=== PATIENT | female | born 1945 | race Hispanic/Latino ===

== ENCOUNTER 2018-01-07 15:58 | Emergency (ER) | payer MEDICARE, BC ==
[2018-01-07 16:07] VITALS: TEMP 98.3
[2018-01-07 16:36] LABS: BASO # 0.06 K/mm3 (0.0-2.0); BASO % 0.5 % (0.0-3.0); EOS # 0.1 (0.0-0.7); EOS % 0.5 % (1.5-5.0); GRAN # 7.55 (1.4-6.5); GRAN % 68.9 % (50.0-68.0); HEMOGLOBIN 13.2 g/dL (12.0-16.0); LYMPH # 2.4 (1.2-3.4); LYMPH % 22.3 % (22.0-35.0); MEAN CELL VOLUME 95.9 fl (80.0-105.0); MEAN CORPUSCULAR HEMOGLOBIN 31.7 pg (25.0-35.0); MEAN PLATELET VOLUME 9.4 fl (7.0-11.0); MONO # 0.9 (0.1-0.6); MONO % 7.8 % (1.0-6.0); RBC 4.17 10^6/uL (3.5-6.1)
[2018-01-07 16:47] LABS: ALB/GLOB RATIO 1.4 (1.1-1.8); ALBUMIN 4.3 g/dL (3.0-4.8); ALT/SGPT 14 U/L (7-56); AST/SGOT 30 U/L (14-36); BLOOD UREA NITROGEN 19 mg/dL (7-21); CALCIUM 9.8 mg/dL (8.4-10.5); GFR NON-AFRICAN AMERICAN > 60
[2018-01-07 16:51] LABS: PH,URINE 6.5 (4.7-8.0); URINE BILIRUBIN NEGATIVE (NEGATIVE); URINE BLOOD TRACE-INTACT (NEGATIVE); URINE GLUCOSE (UA) NEGATIVE (NEGATIVE); URINE LEUKOCYTE ESTERASE SMALL Leu/uL (NEGATIVE); URINE PROTEIN NEGATIVE mg/dL (<30 mg/dL); URINE UROBILINOGEN 0.2 E.U./dL (<1 E.U./dL)
[2018-01-07 16:54] LABS: ACETAMINOPHEN < 10.0 ug/ml (10.0-20.0); SALICYLATE < 1 mg/dL (2.0-20.0); URINE APPEARANCE SL CLOUDY (CLEAR); URINE COLOR YELLOW (YELLOW)
[2018-01-07] MEDS ORDERED: Potassium Chloride 20 mEq ER Tab PO STA (17:03)
[2018-01-07 17:08] LABS: URINE BACTERIA FEW (NEG); URINE RBC 0 - 2 /hpf (0-2)
[2018-01-07 17:26] LABS: BARBITURATES, UR NEGATIVE (NEGATIVE); BENZODIAZEPINES, UR POSITIVE (NEGATIVE); OPIATES, UR NEGATIVE (NEGATIVE); PHENCYCLIDINE, UR NEGATIVE (NEGATIVE)
--- NOTE | 2018-01-07 17:31 | ED PDOC ---
Arrival/HPI - General Historian: Patient - History of Present Illness Narrative History of Present Illness (Text): 01/07/18 17:59 72yo female with history of anxiety present with complaint of hallucination x one week. The step daughter by the bedside states patient has been seeing her and other relatives. states she was seen at [facility] today and nothing was done. She denies SI/HI. states she has been on Xanax for years and took her last pill on Tuesday. Denies any somatic complaint. <Femi Thomas A - Last Filed: 01/07/18 19:16> <Tang Valencia - Last Filed: 01/09/18 11:15> - General Chief Complaint: Psychiatric Evaluation Time Seen by Provider: 01/07/18 16:10 Past Medical History - Provider Review Nursing Documentation Reviewed: Yes - Psychiatric Hx Substance Use: No - Suicidal Assessment Suicide Risk Precautions: None <WilliamHappiness A - Last Filed: 01/07/18 19:16> Family/Social History - Physician Review Nursing Documentation Reviewed: Yes Family/Social History: Unknown Family HX Smoking Status: Never Smoked Hx Alcohol Use: No Hx Substance Use: No <WilliamHappiness A - Last Filed: 01/07/18 19:16> Allergies/Home Meds <Femi Thomas A - Last Filed: 01/07/18 19:16> <Tang Valencia - Last Filed: 01/09/18 11:15> Allergies/Adverse Reactions: Allergies No Known Allergies Allergy (Verified 01/08/18 19:03) Home Medications: Home Meds Medication Instructions Recorded Confirmed Alprazolam [Xanax] 0.5 mg PO DAILY 01/08/18 01/08/18 RX: Escitalopram [Lexapro] 10 mg PO DAILY 01/08/18 01/08/18 Review of Systems - Physician Review All systems were reviewed & negative as marked: Yes - Review of Systems Constitutional: Normal Eyes: Normal ENT: Normal Respiratory: Normal Cardiovascular: Normal Gastrointestinal: Normal Genitourinary Female: Normal Musculoskeletal: Normal Skin: Normal Neurological: Normal Endocrine: Normal Hemo/Lymphatic: Normal Psychiatric: Other (Hallucination) <DiruHappiness A - Last Filed: 01/07/18 19:16> Physical Exam Vital Signs Reviewed: Yes Vital Signs Temp Pulse Resp BP Pulse Ox 01/07/18 16:02 98.3 F 95 H 17 100/57 L 95 Temperature: Afebrile Blood Pressure: Normal Pulse: Regular Respiratory Rate: Normal Appearance: Positive for: Well-Appearing, Non-Toxic, Comfortable Pain Distress: None Mental Status: Positive for: Alert and Oriented X 3 - Systems Exam Head: Present: Atraumatic, Normocephalic Pupils: Present: PERRL Extroacular Muscles: Present: EOMI Conjunctiva: Present: Normal Mouth: Present: Moist Mucous Membranes Neck: Present: Normal Range of Motion Respiratory/Chest: Present: Clear to Auscultation, Good Air Exchange. No: Respiratory Distress, Accessory Muscle Use Cardiovascular: Present: Regular Rate and Rhythm, Normal S1, S2. No: Murmurs Abdomen: No: Tenderness, Distention, Peritoneal Signs Back: Present: Normal Inspection Upper Extremity: Present: Normal Inspection. No: Cyanosis, Edema Lower Extremity: Present: Normal Inspection. No: Edema Neurological: Present: GCS=15, CN II-XII Intact, Speech Normal Skin: Present: Warm, Dry, Normal Color. No: Rashes Psychiatric: Present: Alert, Oriented x 3, Normal Insight, Normal Concentration <Diru,Happiness A - Last Filed: 01/07/18 19:16> Vital Signs Temp Pulse Resp BP Pulse Ox 01/07/18 19:28 97 01/07/18 19:26 85 16 106/75 97 01/07/18 17:52 89 18 101/65 97 01/07/18 16:02 98.3 F 95 H 17 100/57 L 95 <Tang Valencia - Last Filed: 01/09/18 11:15> Medical Decision Making ED Course and Treatment: 01/07/18 19:16 Pt was seen in ED for stated history. She was neurologically intact. Lab was reviewed and her potassium was repleted. Small leukocyte was noted in UA, but pt was asymptomatic at this time. Will not treat. Head CT Negative EKG NSR @82bpm She was medically cleared for psychiatric evaluation. she was seen in ED by LEIDY Flores. He DC with the psychiatrist and pt was DC home to /u with [facility]. - Lab Interpretations Lab Results: 01/07/18 16:15 01/07/18 16:15 Lab Results 01/07/18 16:15: Urine Opiates Screen Negative, Urine Methadone Screen Negative, Ur Barbiturates Screen Negative, Ur Phencyclidine Scrn Negative, Ur Amphetamines Screen Negative, U Benzodiazepines Scrn Positive H, U Oth Cocaine Metabols Negative, U Cannabinoids Screen Negative 01/07/18 16:15: Alcohol, Quantitative < 10 01/07/18 16:15: Salicylates < 1 L, Acetaminophen < 10.0 L 01/07/18 16:15: Sodium 137, Potassium 3.4 L, Chloride 99, Carbon Dioxide 28, Anion Gap 13, BUN 19, Creatinine 0.9, Est GFR ( Amer) > 60, Est GFR (Non- Af Amer) > 60, Random Glucose 102, Calcium 9.8, Magnesium 1.9, Total Bilirubin 0.5, AST 30, ALT 14, Alkaline Phosphatase 55, Total Protein 7.3, Albumin 4.3, Globulin 3.0, Albumin/Globulin Ratio 1.4 01/07/18 16:15: Urine Color Yellow, Urine Appearance Sl cloudy, Urine pH 6.5, Ur Specific [place]eton 1.010, Urine Protein Negative, Urine Glucose (UA) Negative, Urine Ketones Negative, Urine Blood Trace-intact H, Urine Nitrate Negative, Urine Bilirubin Negative, Urine Urobilinogen 0.2, Ur Leukocyte Esterase Small H, Urine RBC 0 - 2, Urine WBC 2 - 5, Ur Epithelial Cells 3 - 4, Urine Bacteria Few 01/07/18 16:15: WBC 11.0, RBC 4.17, Hgb 13.2, Hct 40.0, MCV 95.9, MCH 31.7, MCHC 33.0, RDW 13.0, Plt Count 302, MPV 9.4, Gran % 68.9 H, Lymph % (Auto) 22.3, Mathews % (Auto) 7.8 H, Eos % (Auto) 0.5 L, Baso % (Auto) 0.5, Gran # 7.55 H, Lymph # (Auto) 2.4, Mathews # (Auto) 0.9 H, Eos # (Auto) 0.1, Baso # (Auto) 0.06 - RAD Interpretation Radiology Orders: 01/07/18 16:33 HEAD W/O CONTRAST [CT] Stat - Medication Orders Current Medication Orders: Discontinued Medications Potassium Chloride (K-Dur 20 Meq Er Tab) 20 meq PO STAT STA Stop: 01/07/18 17:04 <Diru,Happiness A - Last Filed: 01/07/18 19:16> - Lab Interpretations Microbiology Results: Microbiology Results 01/07/18 16:15 Urine,Clean Catch Urine Culture - Final No Growth (<1,000 CFU/ML) Lab Results: 01/07/18 16:15 01/07/18 16:15 Lab Results 01/07/18 16:15: Urine Opiates Screen Negative, Urine Methadone Screen Negative, Ur Barbiturates Screen Negative, Ur Phencyclidine Scrn Negative, Ur Amphetamines Screen Negative, U Benzodiazepines Scrn Positive H, U Oth Cocaine Metabols Negative, U Cannabinoids Screen Negative 01/07/18 16:15: Alcohol, Quantitative < 10 01/07/18 16:15: Salicylates < 1 L, Acetaminophen < 10.0 L 01/07/18 16:15: Sodium 137, Potassium 3.4 L, Chloride 99, Carbon Dioxide 28, Anion Gap 13, BUN 19, Creatinine 0.9, Est GFR ( Amer) > 60, Est GFR (Non- Af Amer) > 60, Random Glucose 102, Calcium 9.8, Magnesium 1.9, Total Bilirubin 0.5, AST 30, ALT 14, Alkaline Phosphatase 55, Total Protein 7.3, Albumin 4.3, Globulin 3.0, Albumin/Globulin Ratio 1.4 01/07/18 16:15: Urine Color Yellow, Urine Appearance Sl cloudy, Urine pH 6.5, Ur Specific Teton 1.010, Urine Protein Negative, Urine Glucose (UA) Negative, Urine Ketones Negative, Urine Blood Trace-intact H, Urine Nitrate Negative, Urine Bilirubin Negative, Urine Urobilinogen 0.2, Ur Leukocyte Esterase Small H, Urine RBC 0 - 2, Urine WBC 2 - 5, Ur Epithelial Cells 3 - 4, Urine Bacteria Few 01/07/18 16:15: WBC 11.0, RBC 4.17, Hgb 13.2, Hct 40.0, MCV 95.9, MCH 31.7, MCHC 33.0, RDW 13.0, Plt Count 302, MPV 9.4, Gran % 68.9 H, Lymph % (Auto) 22.3, Mathews % (Auto) 7.8 H, Eos % (Auto) 0.5 L, Baso % (Auto) 0.5, Gran # 7.55 H, Lymph # (Auto) 2.4, Mathews # (Auto) 0.9 H, Eos # (Auto) 0.1, Baso # (Auto) 0.06 - RAD Interpretation Radiology Orders: 01/07/18 16:33 HEAD W/O CONTRAST [CT] Stat - Medication Orders Current Medication Orders: Discontinued Medications Potassium Chloride (K-Dur 20 Meq Er Tab) 20 meq PO STAT STA Stop: 01/07/18 17:04 Last Admin: 01/07/18 18:06 Dose: 20 meq <Tang Valencia - Last Filed: 01/09/18 11:15> - PA / PETROGRAPHY TEACHER / Resident Statement /DO has reviewed & agrees with the documentation as recorded. <Tang Valencia - Last Filed: 01/09/18 11:15> Disposition/Present on Arrival - Present on Arrival Any Indicators Present on Arrival: No History of DVT/PE: No History of Uncontrolled Diabetes: No Urinary Catheter: No History of Decub. Ulcer: No History Surgical Site Infection Following: None - Disposition Have Diagnosis and Disposition been Completed?: Yes Disposition Time: 19:20 Patient Plan: Discharge <Femi Thomas - Last Filed: 01/07/18 19:16> <Tang Valencia - Last Filed: 01/09/18 11:15> - Disposition Diagnosis: Anxiety Disposition: HOME/ ROUTINE Condition: STABLE Discharge Instructions (ExitCare): Anxiety, Adult (DC) Additional Instructions: Follow up with your doctor/[facility] Return to ED for any new symptoms Referrals: Vaughn Frias MD [Primary Care Provider] - Follow up with primary Forms: AG[employer]P (Kyrgyz)
[2018-01-07 17:53] VITALS: O2SAT 97
[2018-01-07 19:28] VITALS: BP 106/75; PULSE 85; RESP 16
--- NOTE | 2018-01-08 09:15 | CARD ---
APPROVED REPORT Date of service: 01/07/2018 EKG Measurement Heart [id number] [id number] <Conclusion> Normal sinus rhythm Normal ECG
--- NOTE | 2018-01-08 09:39 | CT ---
Date of service: 01/07/2018 PROCEDURE: CT HEAD WITHOUT CONTRAST. HISTORY: AMS COMPARISON: None available. TECHNIQUE: Axial computed tomography images were obtained through the head/brain without intravenous contrast. Supplemental Coronal and Sagittal projectections created and reviewed. Radiation dose: Total exam DLP = 808.86 mGy-cm. This CT exam was performed using one or more of the following dose reduction techniques: Automated exposure control, adjustment of the mA and/or kV according to patient size, and/or use of iterative reconstruction technique. FINDINGS: HEMORRHAGE: No intracranial hemorrhage. BRAIN: No mass effect or edema. Cortical atrophy and chronic microvascular ischemic change. VENTRICLES: Unremarkable. No hydrocephalus. CALVARIUM: Unremarkable. PARANASAL SINUSES: Unremarkable as visualized. No significant inflammatory changes. MASTOID AIR CELLS: Unremarkable as visualized. No inflammatory changes. OTHER FINDINGS: None. IMPRESSION: No acute intracranial abnormalities. No significant findings to account for the clinical presentation. Concordant results (preliminary interpretation) provided by [employer] [facility]. Procedure Completed: 17:32. Preliminary Report: Dictated and Authenticated: 17:45. Final Interpretation: 09:36. January 08, 2018.
== END 2018-01-07 19:28 | disposition home or self-care (01) ==
LOC: ED 15:58
DX: F41.9 Anxiety disorder, unspecified (principal)
CPT/HCPCS: 70450; 80053; 81001; 83735; 85025; 87086; 93005; 99285; G0480

== ENCOUNTER 2018-01-08 18:59 | Inpatient (IN) | payer MEDICARE, BC ==
--- NOTE | 2018-01-08 19:23 | ED PDOC ---
Arrival/HPI - General Chief Complaint: Psychiatric Evaluation Time Seen by Provider: 01/08/18 19:01 Historian: Patient - History of Present Illness Narrative History of Present Illness (Text): 01/08/18 19:21 72yo female with pmhx of anxiety present with complaint of hallucinations and anxiety. Patient was seen here for same complaint yesterday. She was discharged home after a psychiatric evaluation. The step daughter by the bedside states patient came back to ED because she is having a longer episode of hallucination. Patient reports anxiety. Denies SI/HI, any somatic complaint. Past Medical History - Provider Review Nursing Documentation Reviewed: Yes - Cardiac Hx Cardiac Disorders: No - Pulmonary Hx Respiratory Disorders: No - Neurological Hx Neurological Disorder: No - HEENT Hx HEENT Disorder: No - Renal Hx Renal Disorder: No - Endocrine/Metabolic Hx Endocrine Disorders: No - Hematological/Oncological Hx Blood Disorders: No - Integumentary Hx Dermatological Disorder: No - Musculoskeletal/Rheumatological Hx Musculoskeletal Disorders: No - Gastrointestinal Hx Gastrointestinal Disorders: No - Genitourinary/Gynecological Hx Genitourinary Disorders: No - Psychiatric Hx Psychophysiologic Disorder: Yes Hx Anxiety: Yes Hx Substance Use: No Family/Social History - Physician Review Nursing Documentation Reviewed: Yes Family/Social History: Unknown Family HX Smoking Status: Never Smoked Hx Alcohol Use: No Hx Substance Use: No Allergies/Home Meds Allergies/Adverse Reactions: Allergies No Known Allergies Allergy (Verified 01/08/18 19:03) Home Medications: Home Meds Medication Instructions Recorded Confirmed Alprazolam [Xanax] 0.5 mg PO DAILY 01/08/18 01/08/18 Escitalopram [Lexapro] 10 mg PO DAILY 01/08/18 01/08/18 Review of Systems - Physician Review All systems were reviewed & negative as marked: Yes - Review of Systems Constitutional: Normal Eyes: Normal ENT: Normal Respiratory: Normal Cardiovascular: Normal Gastrointestinal: Normal Genitourinary Female: Normal Musculoskeletal: Normal Skin: Normal Neurological: Normal Endocrine: Normal Hemo/Lymphatic: Normal Psychiatric: Anxiety Physical Exam Vital Signs Reviewed: Yes Vital Signs Temp Pulse Resp BP Pulse Ox 01/08/18 19:09 98.1 F 81 17 129/78 97 Temperature: Afebrile Blood Pressure: Normal Pulse: Regular Respiratory Rate: Normal Appearance: Positive for: Well-Appearing, Non-Toxic, Comfortable Pain Distress: None Mental Status: Positive for: Alert and Oriented X 3 - Systems Exam Head: Present: Atraumatic, Normocephalic Pupils: Present: PERRL Extroacular Muscles: Present: EOMI Conjunctiva: Present: Normal Mouth: Present: Moist Mucous Membranes Neck: Present: Normal Range of Motion Respiratory/Chest: Present: Clear to Auscultation, Good Air Exchange. No: Respiratory Distress, Accessory Muscle Use Cardiovascular: Present: Regular Rate and Rhythm, Normal S1, S2. No: Murmurs Abdomen: No: Tenderness, Distention, Peritoneal Signs Back: Present: Normal Inspection Upper Extremity: Present: Normal Inspection. No: Cyanosis, Edema Lower Extremity: Present: Normal Inspection. No: Edema Neurological: Present: GCS=15, CN II-XII Intact, Speech Normal Skin: Present: Warm, Dry, Normal Color. No: Rashes Psychiatric: Present: Alert, Oriented x 3, Normal Insight, Normal Concentration Medical Decision Making ED Course and Treatment: 01/08/18 20:31 72yo female bib the family for worsening hallucinations. she was seen in ED yesterday and all labs and Head CT was nonspecific. Her potassium was repleted yesterday. UA was repeated today and moderate leuk was noted in her urine compare to small leuk from yesterday. She was started on Rocephin for UTI. Pt's PMD, Dr. Frias called and requested that pt be admitted to his service for AMS pending, brain MRI and psych consult tomorrow. EKG from yesterday was reviewed, it was NSR @ 82bpm Disposition/Present on Arrival - Present on Arrival Any Indicators Present on Arrival: No History of DVT/PE: No History of Uncontrolled Diabetes: No Urinary Catheter: No History of Decub. Ulcer: No History Surgical Site Infection Following: None - Disposition Have Diagnosis and Disposition been Completed?: Yes Diagnosis: UTI (urinary tract infection), Altered mental status Disposition: HOSPITALIZED Disposition Time: 20:05 Patient Plan: Admission Patient Problems: Current Active Problems Problem Status Onset Altered mental status Acute UTI (urinary tract infection) Acute Condition: STABLE Discharge Instructions (ExitCare): Urinary Tract Infections in Adults, Altered Mental Status (DC) Forms: [employer]up[employer] (Tamazight)
[2018-01-08 19:45] LABS: URINE BILIRUBIN NEGATIVE (NEGATIVE); URINE BLOOD MODERATE (NEGATIVE); URINE GLUCOSE (UA) NEGATIVE (NEGATIVE); URINE LEUKOCYTE ESTERASE MODERATE Leu/uL (NEGATIVE); URINE PROTEIN TRACE mg/dL (<30 mg/dL); URINE UROBILINOGEN 0.2 E.U./dL (<1 E.U./dL)
[2018-01-08 19:50] LABS: URINE APPEARANCE SL CLOUDY (CLEAR); URINE COLOR YELLOW (YELLOW)
[2018-01-08 19:54] LABS: BARBITURATES, UR NEGATIVE (NEGATIVE); BENZODIAZEPINES, UR POSITIVE (NEGATIVE); OPIATES, UR NEGATIVE (NEGATIVE); PHENCYCLIDINE, UR NEGATIVE (NEGATIVE)
[2018-01-08 19:55] LABS: URINE BACTERIA MOD (NEG); URINE WBC 15 - 20 /hpf (0-6)
[2018-01-08] MEDS ORDERED: cefTRIAXone 1 gm 1 GM/100 ML BAG IVPB STA (20:02)
[2018-01-08 20:40] LABS: BASO # 0.06 K/mm3 (0.0-2.0); BASO % 0.6 % (0.0-3.0); EOS # 0.1 (0.0-0.7); EOS % 0.9 % (1.5-5.0); GRAN # 6.59 (1.4-6.5); GRAN % 63.1 % (50.0-68.0); LYMPH # 2.7 (1.2-3.4); MEAN CELL VOLUME 95.6 fl (80.0-105.0); MEAN CORPUSCULAR HEMOGLOBIN 32.1 pg (25.0-35.0); MEAN CORPUSCULAR HGB CONC 33.6 g/dl (31.0-37.0); MONO % 9.4 % (1.0-6.0); RBC 4.05 10^6/uL (3.5-6.1); RED CELL DISTRIBUTION WIDTH 13.3 % (11.5-14.5); WHITE BLOOD COUNT 10.4 10^3/ul (4.5-11.0)
[2018-01-08 20:49] LABS: INR 1.02; PARTIAL THROMBOPLASTIN TIME 27.5 Seconds (25.1-36.5); PROTHROMBIN TIME 11.6 SECONDS (9.4-12.5)
[2018-01-08 21:01] LABS: ALB/GLOB RATIO 1.3 (1.1-1.8); ALBUMIN 4.5 g/dL (3.0-4.8); ALT/SGPT 19 U/L (7-56); AST/SGOT 36 U/L (14-36); BLOOD UREA NITROGEN 22 mg/dL (7-21); CALCIUM 9.6 mg/dL (8.4-10.5); GFR NON-AFRICAN AMERICAN > 60
[2018-01-08] MEDS ORDERED: Pneumococcal 23-Valent Vaccine IM ONE (23:50)
[2018-01-08] MEDS ORDERED: Influenza Vaccine 60 mcg/0.5 mL SYR (4YR UP) IM ONE (23:50)
[2018-01-09] MEDS: cefTRIAXone 1 gm 1 GM/100 ML BAG IVPB SCH (10:00)
--- NOTE | 2018-01-09 21:18 | HP ---
HISTORY OF PRESENT ILLNESS: A 72-year-old white female with a history of mild hypertension and anxiety disorder in the past. Over the past 3 to 4 days, the patient was noted by his step-daughter to have some visual and auditory hallucinations and some confusion. The patient is recently a from her of many many years who approximately 6 months ago. The patient had denied any fever, chills, head trauma following change in mental status, syncope, chest pain, shortness of breath, palpitations, headache, nausea, vomiting, change in vision, change in ambulation, etc. The patient's family had taken the patient to the [facility] approximately 48 hours ago. She was examined and released. I was contacted by the family, had directed the patient because she continued to have disorientation and confusion and visual hallucinations to the [facility]. The patient came to the [facility], again had a CT, laboratory workup etc. and had a Psych consultation and was able to be discharged home. The patient was discharged home, however, continued to have the same and worsening episodes of hallucinations, disorientation, and confusion. The patient was brought back to the Emergency Room at [facility] on the day of admission, which was 01/08/2018. The patient was found to have urinary tract infection and severe confusion, disorientation, and she was admitted because of continued change of mental status. The patient denies any fever or chills, dysuria, hematuria, burning. The patient does have poor appetite. She is a nonsmoker, nondrinker. She takes only Xanax and Lexapro at home. She is on a salt-free diet at home because of her hypertension. PAST SURGICAL HISTORY: None. FAMILY HISTORY: Noncontributory at this point. REVIEW OF SYSTEMS: As above. PHYSICAL EXAMINATION: GENERAL: A well-developed, thin white female, ambulating in the [facility], talking and conversing with the staff and somewhat confused. The patient is awake and alert. CHEST: Clear to auscultation and percussion. HEART: Regular sinus rhythm, carotids are without bruits. ABDOMEN: Soft. EXTREMITIES: Without cyanosis, clubbing, or edema. NEUROLOGIC: Essentially intact. The patient is oriented to person, to place, but not to time today. She does recall having episodes of talking to her parents and . She has also said that she had been taking less of her medication at home than previously prescribed. IMPRESSION: Acute confusional disorder, possible urinary tract infection, urosepsis, early onset of dementia, cerebrovascular accident. The patient did have a CT of the head. She is scheduled for an MRI of the brain. Continue other laboratory data to rule out encephalitis, vasculitis, B12 deficiency, infection, etc. PLAN: To do MRI and also to have a consultation with Dr. Davenport and continue laboratory work, continue IV antibiotics. Vaughn Frias MD
--- NOTE | 2018-01-10 02:51 | CON ---
DATE: 01/09/2018 HISTORY OF PRESENT ILLNESS: In short, the patient is a 72-year-old female with not known previous psychiatric history. The patient was presenting to the emergency room for hallucinations and anxiety. The patient was seen in the emergency room on 01/07/2018. The patient was discharged. At this time, the patient was admitted on the medical site for altered mental status, hallucinations and possible urinary tract infection. Psych consult was called for the same reason. The patient was seen and examined today. The patient presented completely disorganized. The patient is actively hallucinating while talking to this advertising writer, was referring someone in the room and had full conversation with the imaginary person. The patient was not able to keep the conversation. The patient was giving gibberish answers and obviously not doing well. This advertising writer ordered stat dose of Seroquel 12.5 mg as well as this advertising writer started on one-to-one observation because the patient is high risk of elopement. As per previous history, the patient does not have history of mental illness. The patient has never been admitted to the Psychiatric Inpatient Unit. This advertising writer reviewed vital signs. Vital signs seems to be stable. Temperature 97, pulse is 91, blood pressure 134/72, respirations 18, oxygen saturation is 98. Medications reviewed. The patient is on Xanax 0.25 mg p.o. daily, Rocephin, Lexapro 10 mg daily, Ativan 0.5 mg IV push three times a day as needed for anxiety. Seroquel was started. Geodon also was started. Labs reviewed. Most recent was from 01/08/2018. Leukocyte esterase moderate high. Toxicology was positive for benzodiazepines. MENTAL STATUS EXAMINATION: The patient appears to be absolutely disorganized, actively hallucinating during this advertising writer's interview, not able to sustain and keep her attention. The patient was giving gibberish answers. Insight and judgment seems to be impaired. Impulses are not predictable. IMPRESSION: Most likely, the patient is in delirium stage, but we need to obtain more collateral information from the family. The patient said the daughter, Hudson Garza left this advertising writer a message. We will call her back tomorrow, phone number is [phone]. PLAN: We will monitor the patient closely, one-to-one observation. Obtain collateral information from the family. Seroquel was started. Geodon was started. One-to-one was started. We will follow up and advise accordingly. Should you have any questions, give me a call back. Ethel Boyle MD
--- NOTE | 2018-01-10 10:01 | PN ---
DATE: 01/10/2018 SUBJECTIVE: A 72-year-old white female admitted to the hospital with change in mental status, confusion, disorientation, hallucinations and urinary tract infection. The patient has been treated for urinary tract infection. She was seen yesterday by Dr. Ethel Boyle. The patient was felt to have severe disorientation and visual and auditory hallucinations while being seen. The patient was started on Ativan IV push, Geodon IV push and Seroquel. The patient slept, she is on a one to one. She is much improved this morning. She is more awake, alert and oriented. She still has some disorientation. She is hallucinating and talking about her recently . PHYSICAL EXAMINATION: VITAL SIGNS: Stable. She is afebrile. LABORATORY DATA: White count is normal. Awaiting culture of the urine. PLAN: Continue Rocephin, continue psych meds and possible Psych admission. Vaughn Frias MD
[2018-01-10] MEDS: cefTRIAXone 1 gm 1 GM/100 ML BAG IVPB SCH (10:06)
[2018-01-10 17:17] VITALS: O2SAT 96
[2018-01-11 07:40] VITALS: BP 131/60; PULSE 82; RESP 20; TEMP 97.5
--- NOTE | 2018-01-11 09:22 | PN ---
DATE: 01/10/2018 FOLLOWUP NOTE SUBJECTIVE: Patient was followed up. The patient presented much better to compare with yesterday. The patient was more oriented. The patient knows why she is in the hospital. The patient was aware of the month, but not date and year. The patient was overall very pleasant. The patient still has difficulty to stay focused and concentrate. The patient obviously is in delirium stage. The patient gave permission to talk to her step daughter, Hudson at [phone]. As per collateral information from the step daughter, the patient was living independently. The patient was slowly decompensating since that time of her 's . The patient slowly started to feel more depressed. Also for the past week or so, the patient was disorganized as well as had hallucinations. The patient was seen in the emergency room on 01/07, and was discharged. Before that the patient was at [facility], but was cleared because the patient was not in danger to self or others. Right now, family wants the patient to be more stable. This group underwriter discussed future plans and possible power of district attorney in the future. The patient's step daughter also reported that the patient was not sleeping, was not able to stay focused and concentrate. The patient had visual hallucinations of her . The patient does not have history of mental illness, never been diagnosed with mental illness, never been depressed, never tried to kill herself in the past. PHYSICAL EXAMINATION: VITAL SIGNS: Stable. Temperature 97.6, pulse is 91, blood pressure 154/69, respirations 18, oxygen saturation is 98%. MEDICATIONS: Reviewed. The patient is on antibiotics which was switched to p.o. Lexapro, Ativan, Seroquel will be increased to 50 mg at the nighttime, and the patient is on Geodon last time it was yesterday at 3 p.m. LABORATORY DATA: Reviewed. MENTAL STATUS EXAMINATION: The patient presented much calmer. As per staff, the patient slept throughout the night. The patient described her mood as "I am fine, I am here in the hospital." Affect was reactive. At times, mood incongruent. Thought process disorganized, circumstantial, and tangential. The patient had difficulty to stay focused and concentrate. The patient obviously has psychotic symptoms such as visual hallucinations, but presented herself much better. Insight and judgment impaired as of now. Impulses are still unpredictable, but better controlled. IMPRESSION: Rule out delirium due to urinary tract infection. Rule out dementia with psychosis, but this is least likely. If it is dementia, it is early stage. PLAN: Seroquel will be increased. Collaterals were obtained. If the patient meets criteria, we will offer admission. Meanwhile, the patient needs to continue on one-to-one. Continue antibiotics. Should you have any questions, give me a call back. Thank you very much for letting me participate in care of your patient. Ethel Boyle MD
[2018-01-11] MEDS ORDERED: Cefpodoxime (Vantin) 200 mg Tab PO SCH (10:00)
--- NOTE | 2018-01-11 11:58 | PN ---
DATE: 01/11/2018 SUBJECTIVE: A 72-year-old white female who was admitted to hospital with urinary tract infection, change in mental status, confusion, disorientation, paranoia, visual and auditory hallucinations. Patient had improved yesterday, but by yesterday afternoon became worse. Still talking about visualizing her recently passed , seeing his body and feeling that she was told that she was yesterday. Patient was seen by Dr. Davenport for Psychiatry. Family was contacted about signing her into psych. She does have a brain MRI. We will follow that . We will continue IV antibiotics for urinary tract infection and continue the antipsychotic medications including Geodon and Seroquel. Vaughn Frias MD
--- NOTE | 2018-01-11 20:40 | PN ---
DATE: 01/11/2018 SUBJECTIVE: The patient was followed up today. The patient allowed this insurance writer to talk to her step daughter as well as her best friend. As per best friend as well as daughter, the patient does not present to be well, but showing some improvement. As per family, they expressed highest concerns about the patient's safety and disorganized thoughts and behavior. This insurance writer educated the patient as well as family about treatment plan. This insurance writer offered the patient admission to the psychiatric inpatient unit for further evaluation and stabilization. The patient and family agreed. The patient was educated about treatment plan, about medications, risks, benefits, and alternatives. The patient agreed with the plan. Discussed with the medical team. The patient is medically stable for transfer. The patient needs to be continued on p.o. antibiotics. From this insurance writer's side, we will initiate Neurology consultation to rule out early stage of dementia. PHYSICAL EXAMINATION: VITAL SIGNS: Stable. MEDICATIONS: Reviewed. The patient will be on Xanax, Vantin, Lexapro as well as Ativan as needed. Seroquel will be increased to 50 mg twice a day. The patient tolerated that medication as well. LABORATORY DATA: Reviewed. Most recent was from . MENTAL STATUS EXAMINATION: The patient's hygiene is improving. The patient has some improvement with concentration. The patient still presented to be disorganized, had difficulty to concentrate and stay focus. Thought process: Circumstantial, tangential. Thought content: The patient denied visual, auditory, or tactile hallucinations, but the patient had episodes of confusion majority of the time at the nighttime. The patient denied thoughts of harming herself or others. The patient wants to get better. Insight and judgment seem to be improving, but still limited. Impulses are well better controlled. IMPRESSION: Most likely, the patient had delirium stage or rule out early stage of dementia with psychosis, rule out mood disorder not otherwise specified. PLAN: Continue current management. Continue current medication. This insurance writer offered the patient admission. The patient agreed to be transferred to the psychiatric inpatient unit with instructions and supportive therapy. Discussed with the family and friends. Care of the patient took more than 45 minutes of this insurance writer's time. Thank you very much for letting me to participate in the care of your patient. Ethel Boyle MD [facility] # [id number]
--- NOTE | 2018-01-12 20:09 | DS ---
The patient was discharged and transferred to the psych unit under the care of Dr. Davenport. The patient was admitted with change in mental status, confusion, disorientation, hallucination. The patient was treated with multiple medications including Geodon, lorazepam, and Seroquel. She is markedly improved. Vital signs are stable. CT was negative. The patient will have an MRI as an outpatient. Laboratory data was unremarkable. The patient will be discharged to Psych to follow with Dr. Davenport. FINAL DISCHARGE DIAGNOSES: Acute delusional state, hallucinations, hypertension, sleep deprivation, anxiety disorder. Vaughn Frias MD
== END 2018-01-11 16:05 | DRG 690 ==
LOC: ED 18:59 → ERH 20:03 → 5RSO 22:49 → 5RNO 01-09 19:44 → OBSVTOIN 01-10 20:42
PROVIDERS: ADMIT Internal Medicine; ATTEND Internal Medicine
DX: N39.0 Urinary tract infection, site not specified (principal); I10 Essential (primary) hypertension; F41.9 Anxiety disorder, unspecified; Z72.820 Sleep deprivation

== ENCOUNTER 2018-01-11 16:09 | Inpatient (IN) | payer MEDICARE, BC ==
[2018-01-11 16:35] VITALS: BMI 32.3
--- NOTE | 2018-01-11 17:43 | PCM.BM ---
<Kandice Mccollum - Last Filed: 01/11/18 17:40> Treatment Plan Problems - Problems identified on initial assessmt INEFFECTIVE COPING Date Initiated: 01/11/18 Time Initiated: 17:45 Assessment reference: NA Status: Active Priority: 1 POOR SLEEP Date Initiated: 01/11/18 Time Initiated: 17:45 Assessment reference: NA Status: Active Priority: 2 SOCIAL ISOLATION Date Initiated: 01/11/18 Time Initiated: 17:45 Assessment reference: NA Status: Active Priority: 3 Treatment assets and liabiliti Patient Assests: cooperative, ADL independent, physically healthy, good support system, cognitively intact Patient Liabilities: live alone - Milieu Protocol Maintain good personal hygiene: daily Encourage regular showers, daily Remind patient to perform daily oral care, daily Assist patient to perform ADL's Maintain personal safety: every shift Educate patient to report safety concerns to staff, every shift Monitor environment for contraband/sharps Medication safety: Monitor for expected outcome, potential side effects: every shift, Assess barriers to learning: every shift, Assess readiness for medication education: every shift Discharge/Continuing Care - Education Needs Education Needs: Patient Medication, Patient Diagnosis/Disease Process, Patient Coping Skills, Patient Community resources, Patient Activities of Daily Living, Patient Nutrition, Patient Uses of Medical Equipment, Patient Health Practices/Safety, Patient Personal Hygiene/Grooming, Patient Aftercare Safety Plan - Discharge Discharge Criteria: Tolerates medication w/o severe side effects, Free of paranoid thoughts, Free of agitation, Normal sleep pattern, Ability to care for self, No longer exhibiting s/s of withdrawal, Reduction of target symptoms Discharge to:: Home <Ethel Boyle - Last Filed: 01/12/18 16:04> - Diagnosis (1) Psychosis Status: Acute Interventions: 01/12/18 16:04 Psychoeducation/psychotherapy Psychopharmacology/adjustment of medications as needed/ monitoring possible side effects Evaluate pt on daily basis Compliance with medications and follow up appointments Long acting medication if pt is noncompliant with pill form Suicide and homicide risk assessment and prevention, coping strategies, safety plan Relapse prevention Reduction of symptoms Improve functional status Possible assertive community treatment Cognitive behavioral therapy Family involvement Possible social skill training as outpatient (2) UTI (urinary tract infection) Status: Acute Interventions: 01/12/18 16:04 Pt will be seen by medical team as needed Medications will be confirmed and resumed Additional consultation by specialists as needed Lab work as needed (CBC, CMP, TSH, free T4, UA, ) CXR as needed EKG Physical therapy evaluation as needed <Nicole Suarez - Last Filed: 01/13/18 16:33>
[2018-01-11] MEDS ORDERED: Cefpodoxime (Vantin) 200 mg Tab PO SCH (18:00)
[2018-01-11] MEDS: Cefpodoxime (Vantin) 200 mg Tab PO SCH (18:10)
[2018-01-12] MEDS: Cefpodoxime (Vantin) 200 mg Tab PO SCH ×2 (05:00→17:11)
[2018-01-12] MEDS ORDERED: Alum-Mag Hydrox-Simethicone Susp (30 mL) PO PRN (05:19)
[2018-01-12] MEDS ORDERED: Magnesium Hydroxide Susp 30 ml UD PO PRN (05:19)
[2018-01-12 08:07] LABS: HDL CHOLESTEROL 55 mg/dL (29-60)
[2018-01-12 08:18] LABS: LDL CHOLESTEROL 124 mg/dL (0-129)
[2018-01-12 08:23] LABS: FREE T4 1.27 ng/dL (0.78-2.19)
--- NOTE | 2018-01-12 10:57 | PN ---
DATE: 01/12/2018 SUBJECTIVE: A 72-year-old white female seen in the Psychiatry unit under the care of Dr. Davenport. The patient is well known to me for many years with hypertension and anxiety disorder. The patient had a recent change in mental status with confusion, disorientation and hallucinations, auditory and visual. The patient is grieving the loss of her . She also has had sleep deprivation and possible use or not use of her Xanax as prescribed. The patient is still having conversations about her passed . She still believes her is or should be in the room. I had a long discussion with the patient about living in the present and recognize that she is a and that she has been living alone for the last six months. The patient seems calm, but somewhat disoriented. I had a long discussion with Dr. Davenport about the patient's state. The patient has a good prognosis with proper education and some therapy, she should improve. PHYSICAL EXAMINATION VITAL SIGNS: Stable. CHEST: Clear to auscultation and percussion. PLAN: Plan is to continue medication therapy and also, a neurological consultation to rule out early onset dementia. Vaughn Frias MD
--- NOTE | 2018-01-12 16:04 | PCM.PSYCH ---
Initial Psychiatric Evaluation - Initial Psychiatric Evaluation Type of Admission: Voluntary Legal Status: Capacity (patient has capacity to sign consent for treatment) Chief Complaint (in patient's own words): "this is not what I am trying to say, oh she is not my blood relative, oh hold on a second, I was little off today, ah yes what I was trying to say?" Patient's Reaction to Hospitalization: patient was transferred from the medical side for evaluation and stabilization of depressive symptoms as well as anxiety as well as confusion disorganized thoughts and behavior, psychosis. History of Present Illness and Precipitating Events: shortly patient is 72 year old female with not known previous psychiatric history, patient lives independently, pt initially was admitted to the medical site for evaluation of disorganized thoughts and behavior, pt was wondering in the community, was confused, psychotic, was found to have UTI, was treated with IV antibiotics, was medically stable, pt was still presented to be confused, disorganized, family expressed highest concern about pt's safety, pt was transferred from the medical floor yesterday uneventfully, pt requires further evaluation and stabilization, meds adjustment and titration. Pt was seen and examined today at the treatment team meeting with medical scientific officer as well as students, patient presented with improved personal hygiene, wears regular clothing, patient presented to be very confused, disorganized, had difficulty to find words, patient was not able to express herself very well, patient was randomly saying things and had difficult to to stay focused and concentrate. pt was not able to draw a clock, had only two words recollection while Mini Cog exam. ADLs if improving. pt said that she was feeling "drowsy", offered to change seroquel to the hs dose. patient denied hearing voices denied seeing but patient was seeing things and had full blown conversation with water cup, before coming to the psychiatric inpatient unit. as per staff pt wonders in the unit needs constant redirection and support, pt was not able to find her room. no agitation or aggression. as per family (step daughter) pt most likely did not sleep for a week prior to come to the hospital, was misusing xanax, taking it sporadically. patient did not have history of mental illness, patient did not have history of suicidal attempts, patient was depressed because of her in May 2017. past psychiatric history: Questionable depression in May 2017, no suicidal attempts, no psychiatric admissions. family history: Unknown Social history: Patient lives independently medical history: Urinary tract infection, tx with antibiotics. 01/12/18 01/12/18 07:45 07:45 Triglycerides 89 Cholesterol 224 H LDL Cholesterol Direct 124 HDL Cholesterol 55 Free T4 1.27 TSH 3rd Generation 0.38 L Vital Signs Temp Pulse Resp BP 01/12/18 07:25 97.7 F 79 20 147/98 H 01/11/18 16:40 16 Current Medications: Active Medications Generic Name Dose Route Start Last Admin Trade Name Freq PRN Reason Stop Dose Admin Acetaminophen 650 mg 01/12/18 05:19 Tylenol 325mg Tab PO Q4 PRN Pain, moderate (4-7) Al Hydrox/Mg Hydrox/Simethicone 30 ml 01/12/18 05:19 Maalox Plus 30 Ml PO DAILY PRN Upset Stomach Alprazolam 0.25 mg 01/11/18 16:45 01/11/18 18:08 Xanax PO 01/18/18 16:46 0.25 mg BID IVANNA Administration Protocol Cefpodoxime Proxetil 200 mg 01/11/18 18:15 01/12/18 05:00 Vantin PO 01/14/18 09:00 200 mg Q12 IVANNA Administration Protocol Escitalopram Oxalate 10 mg 01/12/18 08:00 Lexapro PO DAILY IVANNA Lorazepam 0.5 mg 01/11/18 16:49 Ativan PO TID PRN Anxiety Protocol Lorazepam 0.5 mg 01/11/18 16:50 Ativan IM Q6H PRN Anxiety Protocol Magnesium Hydroxide 30 ml 01/12/18 05:19 Milk Of Magnesia PO DAILY PRN Constipation Quetiapine Fumarate 50 mg 01/11/18 22:00 01/11/18 21:16 Seroquel PO 50 mg AMHS IVANNA Administration Protocol Ziprasidone 20 mg 01/11/18 16:46 Geodon Cap PO TID PRN Agitation Protocol Ziprasidone 10 mg 01/11/18 16:48 Geodon Inj IM TID PRN Agitation Protocol Past Psychiatric History - Past Psychiatric History Previous Treatment History: None Prior Professional Help: see HPI Prior Psychiatric Treatment: see HPI At what hospital: see HPI Duration: see HPI Nature of Treatment: see HPI Explanation of prior treatment: see HPI History of Abuse: see HPI History of ETOH/Drug Use: see HPI History of Family Illness: see HPI Pertinent Medical Hx (Current Medical&Sleep Prob, Allergies): Allergies Allergy/AdvReac Type Severity Reaction Status Date / Time No Known Allergies Allergy Verified 01/08/18 19:03 Alprazolam [Xanax] 0.5 mg PO DAILY 01/08/18 Escitalopram [Lexapro] 10 mg PO DAILY 01/08/18 Cefpodoxime [Vantin] 200 mg PO Q12 tab 01/11/18 Review of Systems - Review of Systems Systems not reviewed;Unavailable: Acuity of Condition - EENT Eyes: As Per HPI Ears: As Per HPI Nose/Mouth/Throat: As Per HPI - Breasts Breasts: As Per HPI - Cardiovascular Cardiovascular: As Per HPI - Respiratory Respiratory: As Per HPI - Gastrointestinal Gastrointestinal: As Per HPI - Genitourinary Genitourinary: As Per HPI - Reproductive: Female Reproductive:Female: As Per HPI - Menstruation Menstruation: As Per HPI - Musculoskeletal Musculoskeletal: As Par HPI - Integumentary Integumentary: As Per HPI - Neurological Neurological: As Per HPI - Psychiatric Psychiatric: As Per HPI - Endocrine Endocrine: As Per HPI - Hematologic/Lymphatic Hematologic: As Per HPI Mental Status Examination - Personal Presentation Personal Presentation: Looks stated age - Affect Affect: Constricted, Flat - Motor Activity Motor Activity: Psychomotor Retardation - Reliability in Providing Information Reliability in Providing Information: Poor, due to alteration in thoughts, Poor, due to cognitve impairment - Speech Speech: Disorganized, Irrelevant - Mood Mood: Neutral ("I am confused...") - Formal Thought Process Formal Thought Process: Other (disorganized thoguths) - Hallucinations/Delusions Hallucinations: Visual Delusions: Persecution - Obsessions/Compulsions Obsessions: None Compulsions: None - Cognitive Functions Orientation: Person, Place Attention/Concentration: Easily distracted Estimate of Intelligence: Average Judgement: Intact, as evidence by: Insight regarding need for hospitalization ("do whatever you need to do, I want to feel better") - Risk Risk: Self-mutilation, Diminished functioning - Strength & Assets Inventory Strength & Assets Inventory: Family support, Cooperative, Other (good physical health, o drug abuse) - Limitations Limitations: Living alone DSM 5 DX - DSM 5 DSM 5 Diagnosis: psychosis NOS delirium due to sleep deprivation, possible benzodiazepine dependence misuse, urinary tract infection Adjustment disorder to be ruled out - Recommended/Plan of Treatment Treatment Recommendations and Plan of Treatment: Milieu/structure/supportive therapy Medical consult appreciated, discussed with Dr. Frias today SW consultation for discharge plan and social issues Med management xanax next as needed Lexapro 10 mg will be continued for depression and anxiety Seroquel 75 mg at the nighttime for psychosis patient is on Vantin 200 mg twice a day for urinary tract infection Family involvement Follow up on labs Will monitor closely Pt was educated about risk/benefits and alternatives of medications, coping strategies (safety plan, suicide prevention), relapse prevention, importance of follow up with psychiatrist and therapist, stay away from drugs/alcohol/smoking Projected ELOS: 5 days Prognosis: fair Discharge Plan and Discharge Criteria: Pt will be not depressed or manic, will be more hopeful, will be not psychotic or anxious, will be not having thoughts of harming self or others, will be tolerating medications well, will not have major side effects, will be able to function, will not pose threat to self or others. - Smoking Cessation Smoking Cessation Initiated: No Reason for not providing: denied smoking, denied drug use, denied alcohol consumption
--- NOTE | 2018-01-12 19:47 | CON ---
DATE: 01/12/2018 CHIEF COMPLAINT: Evaluated for dementia. HISTORY OF PRESENT ILLNESS: This is a 72-year-old woman with past medical history of hypertension, anxiety disorder, and depression who has come into the Psychiatric hospital for worsening depression and anxiety and was found to be having disorganized thoughts and behavior, was wandering around the community confused and mildly psychotic, found to have urinary tract infection, recently on the medical side was medically stable and treated with IV antibiotics. Noticed to have simply being disorganized currently on the psychiatric unit for medical stabilization. She was called to be evaluated for underlying dementia. She was definitely disorganized, difficult to , cannot draw the clock properly, but mini-mental status examination was 26 out of 30, which indicates some mild cognitive impairment. Currently no focal weakness of the extremities. REVIEW OF SYSTEMS: A 14-point review of systems is negative as per the HPI. PAST MEDICAL HISTORY: As above. FAMILY HISTORY: Noncontributory. ALLERGIES: NO KNOWN DRUG ALLERGIES. MEDICATIONS: Reviewed by nurses' reconciliation sheet. LABORATORY DATA: Triglycerides 89, cholesterol is 224, LDL is 124. PHYSICAL EXAMINATION: VITAL SIGNS: Temperature 97.7, pulse rate 79, blood pressure 147/98, respiratory rate 20, oxygen saturation 99% on room air. GENERAL: Patient was sitting up in bed in no acute distress. HEENT: Normocephalic, atraumatic. PERRLA. Extraocular muscles intact. NECK: Supple. No JVD. No adenopathy noted. LUNGS: Clear to auscultation. No adventitious sounds. HEART: S1 and S2. Normal rate and rhythm. No murmurs rubs or gallops. ABDOMEN: Soft, nontender, nondistended. Bowel sounds present. EXTREMITIES: No clubbing. No cyanosis. Peripheral are 2+ bilaterally. NEUROLOGIC: Patient is alert, orientated to person, place, month, and year. Speech is fluent without any errors. Recall after 5 minutes is 0/3. Poor attention span and slow thought process. She is very disorganized and has diminished attention span. Her mini-mental status examination was 26/30. Cranial nerves II through XII intact. Motor exam: Slight increased tone throughout. Moves all extremities equally. Toes are downgoing bilaterally. Sensory exam: Light touch pinprick, proprioception, and vibration are intact. DTRs are 2+ throughout. Coordination: [id number] intact. No dysmetria noted. Gait is normal. IMPRESSION AND PLAN: She does have evidence of mild cognitive impairment, superimposed underlying depression and anxiety and some adjustment disorder possibly too. At this time, we will recommend: 1. Could consider Aricept 10 mg p.o. daily for cognition and thiamine 100 mg p.o. daily. 2. Advised attention exercises. 3. Advised to follow up as an outpatient for dementia evaluation in my office for further testing. 4. Delirium precautions. 5. Continue psychiatric management, continue Lexapro. Thank you for this consult. Palmer Whitehead MD
[2018-01-13] MEDS: Cefpodoxime (Vantin) 200 mg Tab PO SCH (06:41)
--- NOTE | 2018-01-13 10:40 | PN ---
DATE: 01/13/2018 SUBJECTIVE: A 72-year-old white female transferred from the [facility] to the psych unit. Under the care of Dr. Davenport. The patient is more lucid, less confused, less hallucinations. She is tolerating her diet well. She is tolerating her medications well. She is sleeping better with Seroquel. Plan is to continue psychiatric therapy as per Dr. Davenport. Vaughn Frias MD
--- NOTE | 2018-01-13 15:46 | PCM.PYCHPN ---
Psychiatric Progress Note - Psychiatric Progress Note Patient seen today, length of contact: 30min Patient Chief Complaint: "I saw Advertisement about the [facility] and homicidal, do I need to schedule special appointment? I mean not appointment but preappointment?" Problems Identified/Issues Discussed: Suicide/ homicide prevention, past psychiatric h/o, current psychiatric symptoms, medical problems, risk/benefits and alternatives of medications, medications compliance, coping strategies, substance abuse h/o, relapse prevention, importance of follow up with psychiatrist and therapist, discharge plan. Medical Problems: see HPI UTI better Diagnostic Results: Lab Results 01/12/18 07:45: Triglycerides 89, Cholesterol 224 H, LDL Cholesterol Direct 124, HDL Cholesterol 55 01/12/18 07:45: RPR Nonreactive 01/12/18 07:45: Free T4 1.27, TSH 3rd Generation 0.38 L Vital Signs Temp Pulse Resp BP 01/13/18 07:22 98.1 F 94 H 20 110/56 L 01/12/18 15:00 97 H 112/59 L 01/12/18 07:25 97.7 F 79 20 147/98 H 01/11/18 16:40 16 DSM 5 Symptoms Update: shortly patient is 72 year old female with not known previous psychiatric history, patient lives independently, pt initially was admitted to the medical site for evaluation of disorganized thoughts and behavior, pt was wondering in the community, was confused, psychotic, was found to have UTI, was treated with IV antibiotics, was medically stable, pt was still presented to be confused, disorganized, family expressed highest concern about pt's safety, pt was transferred from the medical floor yesterday uneventfully, pt requires further evaluation and stabilization, meds adjustment and titration. Pt was seen and examined today at the treatment team meeting with medical tech as well as students, patient presented with improved personal hygiene, wears regular clothing, patient presented to be very confused, disorganized, had difficulty to find words, pt was saying that she saw an advertizement about this program on [employer] (it is not possible, pt is very confused), pt wasnot able to draw a clock, scored 23/30on MMSE. pt has constructive apraxia. ' patient was seen by Dr. Whitehead, neurologist yesterday recommended outpatient follow-up. DSM 5 Diagnosis: psychosis NOS delirium due to sleep deprivation, possible benzodiazepine dependence misuse, urinary tract infection Adjustment disorder to be ruled out Medication Change: Yes (Seroquel increased) Medical Record Reviewed: Yes Consults ordered or reviewed: medical consult as well as neurology consult appreciated Mental Status Examination - Cognitive Function Orientation: Person, Place Memory: Impaired Attention: Poor Concentration: Poor Association: Loose Fund of Knowledge: Poor - Mood Mood: Neutral ("I am confused...") - Affect Affect: Constricted, Flat - Formal Thought Process Formal Thought Process: Other (disorganized thoguths) - Suicidal Ideation Suicidal Ideation: No - Homicidal Ideation Homicidal Ideation: No Goal/Treatment Plan - Goal/Treatment Plan Need for Continued Stay: Remain at risks for inpatient hospitalization, Severe depression anxiety, Discharge may exacerbated symptoms, Severe functional impairment Progress Toward Problem(s) and Goals/Treatment Plan: Milieu/structure/supportive therapy Medical consult appreciated, discussed with Dr. Frias today patient was evaluated by Dr. Whitehead SW consultation for discharge plan and social issues Med management xanax next as needed Lexapro 10 mg will be continued for depression and anxiety Seroquel 100 mg at the nighttime for psychosis patient is on Vantin 200 mg twice a day for urinary tract infection Family involvement Follow up on labs Will monitor closely Pt was educated about risk/benefits and alternatives of medications, coping strategies (safety plan, suicide prevention), relapse prevention, importance of follow up with psychiatrist and therapist, stay away from drugs/alcohol/smoking Estimated Date of D/C: 01/17/18
--- NOTE | 2018-01-14 12:59 | PN ---
DATE: 01/14/2018 SUBJECTIVE: The patient is seen in the Psychiatric Unit under the care of Dr. Davenport, we then seen the patient on consultation. She has markedly improved. She appears healthier more in touch with reality. Not having any further hallucinations, visual or auditory. Her physical examination is unchanged. The patient is to continue therapy for a probable discharge in the next 48 hours. Vaughn Frias MD
--- NOTE | 2018-01-14 14:09 | PCM.PYCHPN ---
Psychiatric Progress Note - Psychiatric Progress Note Patient seen today, length of contact: 30min Patient Chief Complaint: "I feel little better" Problems Identified/Issues Discussed: Suicide/ homicide prevention, past psychiatric h/o, current psychiatric symptoms, medical problems, risk/benefits and alternatives of medications, medications compliance, coping strategies, substance abuse h/o, relapse prevention, importance of follow up with psychiatrist and therapist, discharge plan. Medical Problems: see HPI UTI better Diagnostic Results: Lab Results 01/12/18 07:45: Triglycerides 89, Cholesterol 224 H, LDL Cholesterol Direct 124, HDL Cholesterol 55 01/12/18 07:45: RPR Nonreactive 01/12/18 07:45: Free T4 1.27, TSH 3rd Generation 0.38 L Vital Signs Temp Pulse Resp BP 01/13/18 07:22 98.1 F 94 H 20 110/56 L 01/12/18 15:00 97 H 112/59 L 01/12/18 07:25 97.7 F 79 20 147/98 H 01/11/18 16:40 16 DSM 5 Symptoms Update: shortly patient is 72 year old female with not known previous psychiatric history, patient lives independently, pt initially was admitted to the medical site for evaluation of disorganized thoughts and behavior, pt was wondering in the community, was confused, psychotic, was found to have UTI, was treated with IV antibiotics, was medically stable, pt was still presented to be confused, disorganized, family expressed highest concern about pt's safety, pt was transferred from the medical floor yesterday uneventfully, pt requires further evaluation and stabilization, meds adjustment and titration. Pt was seen and examined today next to the nursing station. pt presented little better, thought process is better organized, still has tangentiality. yesterday pt was not able to draw a clock, scored 23/30on MMSE. pt has constructive apraxia. ' patient was seen by Dr. Whitehead, neurologist yesterday recommended outpatient follow-up. DSM 5 Diagnosis: psychosis NOS delirium due to sleep deprivation, possible benzodiazepine dependence misuse, urinary tract infection Adjustment disorder to be ruled out Medication Change: No (Seroquel increased yesterday) Medical Record Reviewed: Yes Mental Status Examination - Cognitive Function Orientation: Person, Place Memory: Impaired Attention: Poor Concentration: Poor Association: Loose Fund of Knowledge: Poor - Mood Mood: Neutral ("I am confused...") - Affect Affect: Constricted, Flat - Formal Thought Process Formal Thought Process: Other (disorganized thoguths) - Suicidal Ideation Suicidal Ideation: No - Homicidal Ideation Homicidal Ideation: No Goal/Treatment Plan - Goal/Treatment Plan Need for Continued Stay: Remain at risks for inpatient hospitalization, Severe depression anxiety, Discharge may exacerbated symptoms, Severe functional impairment Progress Toward Problem(s) and Goals/Treatment Plan: Milieu/structure/supportive therapy Medical consult appreciated, discussed with Dr. Frias today patient was evaluated by Dr. Whitehead SW consultation for discharge plan and social issues Med management xanax next as needed Lexapro 10 mg will be continued for depression and anxiety Seroquel 100 mg at the nighttime for psychosis patient is on Vantin 200 mg twice a day for urinary tract infection, pt completed course of abx Family involvement Follow up on labs Will monitor closely Pt was educated about risk/benefits and alternatives of medications, coping strategies (safety plan, suicide prevention), relapse prevention, importance of follow up with psychiatrist and therapist, stay away from drugs/alcohol/smoking Estimated Date of D/C: 01/17/18
--- NOTE | 2018-01-15 13:15 | PCM.PYCHPN ---
Psychiatric Progress Note - Psychiatric Progress Note Patient seen today, length of contact: 30min Patient Chief Complaint: "I feel little better, I don't remember being confused..." Problems Identified/Issues Discussed: Suicide/ homicide prevention, past psychiatric h/o, current psychiatric symptoms, medical problems, risk/benefits and alternatives of medications, medications compliance, coping strategies, substance abuse h/o, relapse prevention, importance of follow up with psychiatrist and therapist, discharge plan. Medical Problems: see HPI UTI better Diagnostic Results: Lab Results 01/12/18 07:45: Triglycerides 89, Cholesterol 224 H, LDL Cholesterol Direct 124, HDL Cholesterol 55 01/12/18 07:45: RPR Nonreactive 01/12/18 07:45: Free T4 1.27, TSH 3rd Generation 0.38 L Vital Signs Temp Pulse Resp BP 01/13/18 07:22 98.1 F 94 H 20 110/56 L 01/12/18 15:00 97 H 112/59 L 01/12/18 07:25 97.7 F 79 20 147/98 H 01/11/18 16:40 16 DSM 5 Symptoms Update: shortly patient is 72 year old female with not known previous psychiatric history, patient lives independently, pt initially was admitted to the medical site for evaluation of disorganized thoughts and behavior, pt was wondering in the community, was confused, psychotic, was found to have UTI, was treated with IV antibiotics, was medically stable, pt was still presented to be confused, disorganized, family expressed highest concern about pt's safety, pt was transferred from the medical floor yesterday uneventfully, pt requires further evaluation and stabilization, meds adjustment and titration. Pt was seen and examined today next to the nursing station. patient reports that she feels much better, patient reports "medication makes me feel very good, I had a good night's sleep", as per nursing report patient was wandering around, was very confused, was not able to find her room overnight time. pt presented little better, thought process is better organized, still tangential 01/13/18 pt was not able to draw a clock. Scored 23/30on MMSE. 01/15/18 pt was able to draw a clock better. ' patient was seen by Dr. Whitehead, neurologist yesterday recommended outpatient follow-up. pt's step daughter left this principal technical writer a message saying that pt is doing "better, but not completely well" DSM 5 Diagnosis: psychosis NOS delirium due to sleep deprivation, possible benzodiazepine dependence misuse, urinary tract infection Adjustment disorder to be ruled out Medication Change: No Medical Record Reviewed: Yes Mental Status Examination - Cognitive Function Orientation: Person, Place Memory: Impaired Attention: Poor Concentration: Poor Association: Loose Fund of Knowledge: Poor - Mood Mood: Neutral ("I am confused...") - Affect Affect: Constricted, Flat - Formal Thought Process Formal Thought Process: Other (disorganized thoguths) - Suicidal Ideation Suicidal Ideation: No - Homicidal Ideation Homicidal Ideation: No Goal/Treatment Plan - Goal/Treatment Plan Need for Continued Stay: Remain at risks for inpatient hospitalization, Severe depression anxiety, Discharge may exacerbated symptoms, Severe functional impairment Progress Toward Problem(s) and Goals/Treatment Plan: Milieu/structure/supportive therapy Medical consult appreciated, discussed with Dr. Frias today patient was evaluated by Dr. Whitehead SW consultation for discharge plan and social issues Med management xanax next as needed Lexapro 10 mg will be continued for depression and anxiety Seroquel 100 mg at the nighttime for psychosis patient is on Vantin 200 mg twice a day for urinary tract infection, pt completed course of abx Family involvement Follow up on labs Will monitor closely Pt was educated about risk/benefits and alternatives of medications, coping strategies (safety plan, suicide prevention), relapse prevention, importance of follow up with psychiatrist and therapist, stay away from drugs/alcohol/smoking Estimated Date of D/C: 01/17/18
--- NOTE | 2018-01-16 12:17 | PN ---
DATE: 01/16/2018 SUBJECTIVE: The patient is seen in the psychiatric unit, under care of Dr. Davenport. The patient is doing well, she is sleeping better. She is less confused, less oriented. She has less hallucinations. She is awaiting possible discharge today. Physical examination is unchanged. The patient is stable. Vital signs are stable. She is afebrile. Plan is we will follow as an outpatient. Vaughn Frias MD
[2018-01-17 07:28] VITALS: TEMP 98.5
--- NOTE | 2018-01-17 08:19 | PN ---
DATE: 01/16/[address] Ethel Boyle. Chart reviewed and case discussed with Nursing. The patient is a 72-year-old white female who had no known prior psychiatric history and who had been living alone. She initially had been admitted for evaluation of disorganized thoughts and behavior on the medical floor. She had been seen wandering in the community in a confused state, reportedly psychotic (type and stated). She was found to have a urinary tract infection and was treated with antibiotics but upon clearance of that infection, still appeared to be confused and disorganized. She was now transferred to Psychiatry for further evaluation and treatment. Yesterday she indicated to Dr. Boyle that she was feeling better that she had a good night's sleep, however, Nursing reported that she was wandering around, appeared confused and not able to find her room at night. She had scored a 23/30 on a Folstein mini-mental status examination and showed organic features of an inability to draw the time on a clock on 01/13/2018, but improved on 01/15/2018. Her daughter has been anxious to get further feedback, but I have been hesitant to offer this; with my knowing the patient well. 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 The patient reported that she is in therapy with Dr. Serrano. She reported that after her , she was encouraged to see a therapist and had no prior inpatient psychiatric admissions. The patient has been maintained on Ativan p.r.n., Geodon p.r.n., Lexapro 10 mg daily. I have presently started her on Risperdal 0.25 mg at bedtime. She is also on Xanax 0.25 mg b.i.d. I have stopped the Seroquel that the patient has been on and seems not to have been responding favorably to. The patient's laboratory is also reviewed. Blood pressure 124/71, pulse 90, temperature 96.4, respiratory rate 21. Daniel Thompson MD/ PhD
[2018-01-17 10:46] LABS: BASO # 0.03 K/mm3 (0.0-2.0); BASO % 0.3 % (0.0-3.0); EOS % 0.1 % (1.5-5.0); GRAN # 8.61 (1.4-6.5); GRAN % 81.9 % (50.0-68.0); LYMPH # 1.4 (1.2-3.4); LYMPH % 12.9 % (22.0-35.0); MEAN CELL VOLUME 95.8 fl (80.0-105.0); MEAN CORPUSCULAR HEMOGLOBIN 31.9 pg (25.0-35.0); MEAN CORPUSCULAR HGB CONC 33.2 g/dl (31.0-37.0); MEAN PLATELET VOLUME 9.4 fl (7.0-11.0); MONO # 0.5 (0.1-0.6); MONO % 4.8 % (1.0-6.0); RBC 4.08 10^6/uL (3.5-6.1); RED CELL DISTRIBUTION WIDTH 12.9 % (11.5-14.5); WHITE BLOOD COUNT 10.5 10^3/ul (4.5-11.0)
[2018-01-17 11:00] LABS: ALB/GLOB RATIO 1.4 (1.1-1.8); ALBUMIN 4.4 g/dL (3.0-4.8); ALT/SGPT 20 U/L (7-56); AST/SGOT 26 U/L (14-36); BLOOD UREA NITROGEN 17 mg/dL (7-21); CALCIUM 9.6 mg/dL (8.4-10.5); GFR NON-AFRICAN AMERICAN > 60
--- NOTE | 2018-01-17 16:28 | PCM.PYCHPN ---
Psychiatric Progress Note - Psychiatric Progress Note Patient seen today, length of contact: 30min Patient Chief Complaint: "I feel little better, I don't remember being confused..., If i will be in my own home with my family I would be better" Problems Identified/Issues Discussed: Suicide/ homicide prevention, past psychiatric h/o, current psychiatric symptoms, medical problems, risk/benefits and alternatives of medications, medications compliance, coping strategies, substance abuse h/o, relapse prevention, importance of follow up with psychiatrist and therapist, discharge plan. Medical Problems: see HPI UTI better Diagnostic Results: Lab Results 01/12/18 07:45: Triglycerides 89, Cholesterol 224 H, LDL Cholesterol Direct 124, HDL Cholesterol 55 01/12/18 07:45: RPR Nonreactive 01/12/18 07:45: Free T4 1.27, TSH 3rd Generation 0.38 L Vital Signs Temp Pulse Resp BP 01/13/18 07:22 98.1 F 94 H 20 110/56 L 01/12/18 15:00 97 H 112/59 L 01/12/18 07:25 97.7 F 79 20 147/98 H 01/11/18 16:40 16 01/17/18 10:30 01/17/18 10:30 Lab Results 01/17/18 10:30: Sodium 139, Potassium 3.9, Chloride 102, Carbon Dioxide 27, Anion Gap 13, BUN 17, Creatinine 0.8, Est GFR ( Amer) > 60, Est GFR (Non- Af Amer) > 60, Random Glucose 160 H, Calcium 9.6, Total Bilirubin 0.5, AST 26, ALT 20, Alkaline Phosphatase 47, Total Protein 7.6, Albumin 4.4, Globulin 3.2, Albumin/Globulin Ratio 1.4 01/17/18 10:30: WBC 10.5, RBC 4.08, Hgb 13.0, Hct 39.1, MCV 95.8, MCH 31.9, MCHC 33.2, RDW 12.9, Plt Count 260, MPV 9.4, Gran % 81.9 H, Lymph % (Auto) 12.9 L, [place] % (Auto) 4.8, Eos % (Auto) 0.1 L, Baso % (Auto) 0.3, Gran # 8.61 H, Lymph # (Auto) 1.4, [place] # (Auto) 0.5, Eos # (Auto) 0.0, Baso # (Auto) 0.03 01/12/18 07:45: Triglycerides 89, Cholesterol 224 H, LDL Cholesterol Direct 124, HDL Cholesterol 55 01/12/18 07:45: RPR Nonreactive 01/12/18 07:45: Free T4 1.27, TSH 3rd Generation 0.38 L ua ordered DSM 5 Symptoms Update: shortly patient is 72 year old female with not known previous psychiatric history, patient lives independently, pt initially was admitted to the medical site for evaluation of disorganized thoughts and behavior, pt was wondering in the community, was confused, psychotic, was found to have UTI, was treated with IV antibiotics, was medically stable, pt was still presented to be confused, disorganized, family expressed highest concern about pt's safety, pt was transferred from the medical floor yesterday uneventfully, pt requires further evaluation and stabilization, meds adjustment and titration. Pt was seen and examined today next to the nursing station. patient reports that she feels much better, patient reports "medication makes me feel very good, I had a good night's sleep", as per nursing report patient was wandering around, was very confused, was not able to find her room overnight time. pt presented little better, thought process is better organized, still tangential 01/13/18 pt was not able to draw a clock. Scored 23/30on MMSE. 01/15/18 pt was able to draw a clock better. 01/17/18 MOCA 16/30, area of dfecit is concentration and visuospatial/executive functioning. patient was seen by Dr. Whitehead, neurologist recommended outpatient follow-up. 01/17/18, patient's step daughter was contacted today, discussed tx plan, step daughter was concerned about confusions which seems to be transient. DSM 5 Diagnosis: psychosis NOS delirium due to sleep deprivation, possible benzodiazepine dependence misuse, urinary tract infection Adjustment disorder to be ruled out Medication Change: Yes (seroquel d/c, risperdal started by ) Medical Record Reviewed: Yes Mental Status Examination - Cognitive Function Orientation: Person, Place Memory: Impaired Attention: Poor (but impriving) Concentration: Poor (improving) Association: Loose Fund of Knowledge: Poor - Mood Mood: Neutral ("I am confused...") - Affect Affect: Constricted, Flat - Formal Thought Process Formal Thought Process: Other (disorganized thoguths) - Suicidal Ideation Suicidal Ideation: No - Homicidal Ideation Homicidal Ideation: No Goal/Treatment Plan - Goal/Treatment Plan Need for Continued Stay: Remain at risks for inpatient hospitalization, Severe depression anxiety, Discharge may exacerbated symptoms, Severe functional impairment Progress Toward Problem(s) and Goals/Treatment Plan: Milieu/structure/supportive therapy Medical consult appreciated, Dr. Frias signed off patient was evaluated by Dr. Whitehead SW consultation for discharge plan and social issues Med management xanax next as needed Lexapro 10 mg will be continued for depression and anxiety Seroquel was d/c risperdal was started 0.25mg po hs for psychosis patient is on Vantin 200 mg twice a day for urinary tract infection, pt completed course of abx Family involvement Follow up on labs Will monitor closely Pt was educated about risk/benefits and alternatives of medications, coping strategies (safety plan, suicide prevention), relapse prevention, importance of follow up with psychiatrist and therapist, stay away from drugs/alcohol/smoking Estimated Date of D/C: 01/17/18
[2018-01-17 17:22] LABS: URINE APPEARANCE SL CLOUDY (CLEAR); URINE BILIRUBIN NEGATIVE (NEGATIVE); URINE BLOOD MODERATE (NEGATIVE); URINE COLOR YELLOW (YELLOW); URINE GLUCOSE (UA) NEGATIVE (NEGATIVE); URINE LEUKOCYTE ESTERASE TRACE Leu/uL (NEGATIVE); URINE PROTEIN NEGATIVE mg/dL (<30 mg/dL); URINE UROBILINOGEN 0.2 E.U./dL (<1 E.U./dL)
[2018-01-17 18:04] LABS: URINE BACTERIA MOD (NEG)
[2018-01-18 07:20] VITALS: BP 108/68; PULSE 100; RESP 20
--- NOTE | 2018-01-18 16:54 | PCM.PYCHDC ---
Mental Status Examination - Mental Status Examination Orientation: Person, Place, Situation, Time Memory: Other (pt has periods of confusion majority at the evening time.) Mood: Neutral Affect: Broad (and mood congruent) Speech: Appropriate Attention: WNL Concentration: WNL Association: WNL Fund of Knowledge: WNL Formal Thought Process: No Impairment Description of patient's judgement and insight: Pt has improved insight into mental and medical illness, pt was compliant with medications and unit rules and regulations, pt was going to groups, was calm, cooperative, socially appropriate, no behavioral incidents, no agitation, no aggression. Psychotic Thoughts and Behaviors: Pt denied v/a/t hallucinations, denied paranoid ideations, pt does not appear to be psychotic, and thought process is goal directed, better organized to compare with the time of admission. Suicidal Ideation: No Current Homicidal Ideation?: No Plan: pt adamantly denied thoughts of harming self or others denied intent or plan. Discharge Summary - Discharge Note Reason for Hospitalization: patient was transferred from the medical side for evaluation and stabilization of depressive symptoms as well as anxiety as well as confusion disorganized thoughts and behavior, psychosis. Psychiatric History (includes Medical, Family, Personal Hx): see HPI Laboratory Data: Abnormal Lab Results 01/17/18 17:00 Urine Color Yellow Urine Appearance Sl cloudy Urine pH 6.0 Ur Specific [place] 1.015 Urine Protein Negative Urine Glucose (UA) Negative Urine Ketones Negative Urine Blood Moderate H Urine Nitrate Negative Urine Bilirubin Negative Urine Urobilinogen 0.2 Ur Leukocyte Esterase Trace H Urine RBC 10 - 15 Urine WBC 2 - 5 Ur Epithelial Cells 4 - 5 Urine Bacteria Mod Consultations:: List each consultation separately and include: 1. Reason for request. 2. Findings. 3. Follow-up Consultations: medical consult as well as neurology consult appreciated repeated UA showed blood and leukocyte esterase positive, pt denied any burning upon urination, pt was advised to f/u with within a week, pt verbalized understanding. Summary of Hospital Course include:: 1. Description of specific treatment plan utilized for patients during their course of treatmen. 2. Summarize the time- course for resolution of acute symptoms and/or regressed behaviors. 3. Describe issues identified and worked on during hospitalization. 4. Describe medication utilized. 5. Describe medical problems identified and treated. 6. Reassessment of suicide risk Summary of Hospital Course: shortly patient is 72 year old female with not known previous psychiatric history, patient lives independently, pt initially was admitted to the medical site for evaluation of disorganized thoughts and behavior, pt was wondering in the community, was confused, psychotic, was found to have UTI, was treated with IV antibiotics, was medically stable, pt was still presented to be confused, disorganized, family expressed highest concern about pt's safety, pt was transferred from the medical floor uneventfully, pt required further evaluation and stabilization, meds adjustment and titration. at the time of psychiatric admission patient presented to be very confused, disorganized, had difficulty to find words, patient was not able to express herself very well, patient was randomly saying things and had difficult to to stay focused and concentrate. pt was not able to draw a clock, had only two words recollection while Mini Cog exam. ADLs improving. please see admission note for more detailed information. 01/12/18 01/12/18 07:45 07:45 Triglycerides 89 Cholesterol 224 H LDL Cholesterol Direct 124 HDL Cholesterol 55 Free T4 1.27 TSH 3rd Generation 0.38 L Vital Signs Temp Pulse Resp BP 01/12/18 07:25 97.7 F 79 20 147/98 H 01/11/18 16:40 16 during this admission pt was seen by medical team , pt completed course of antibiotics pt was seen by neurology team pt was stabilized on the following medications: initially pt was started on seroquel but was switched to Risperdal by pt was continued on lexapro 10mg po daily xanax 0.25mg po daily prn for anxiety he shouldn't tolerated medications well, no side effects observed or reported, aims 0, no EPS. Over the course of this hospitalization it was found that patient's nitzaarin Peter is power of senior attorney for the medical decisions for the patient, phone number [phone], patient power of senior attorney emailed legal documents to the hospital SW. This group underwriter had prolonged conversation with power of senior attorney 01/18/18 discussed treatment course, medications, risk, benefits, alternatives of all medications discussed with POA, who was appreciative. Pt's POA reported that his sister Lisa will come and pt will stay in her house for a week or so. Advised to be followed up with psychiatrist for medical issues Dr.Ashish Whitehead neurologist [phone] all prescriptions given to the patient pt was seen at the treatment team meeting 01/18/18 all treatment team agreed that pt presented much better, deemed ready for discharge. pt expressed her interest to be seen by psychiatrist as outpatient. Over the course of this hospitalization pt was attending groups, pt also had medication management, had therapeutic milieu. Overall pt improved significantly, less confused, more organized, polite, pt was socially appropriate, no behavioral issues, pts insight improved as well "now I know that I was very confused", pt deemed to be ready for discharge. At the time of the discharge pt denied been depressed, denied thoughts of harming self or others, denied psychotic symptoms, and pt does not appeared to be psychotic, denied been anxious, pt is not in imminent danger to self or others, information about follow up appointment, time and address provided to the pt, it is patient responsibility as well as POA to follow up with outpatient clinic, PMD as well as specialists (see SW note for more detailed information). In case pt will need to obtain results of studies pending at discharge pt was provided with contact information of Psychiatric Inpatient unit [phone] as well as Medical Record Department [phone]. pt was provided with prescriptions for all of medications (please see medication reconciliation form) Pt was educated about safety plan in case of worsening of symptoms or in case of suicidal or homicidal ideation call 911 or go to the nearest ER, also was educated to take meds as prescribed and stay away from drugs, pt verbalized understanding. pt's step daughter Lisa Townsend picked pt up today, seems to be disrespectful towards staff, was using foul language, was abusive towards SW, unsatisfied. - Diagnosis (1) Psychosis Current Visit: Yes Status: Acute Priority: High (2) UTI (urinary tract infection) Current Visit: No Status: Acute Priority: High - Final Diagnosis (DSM 5) Condition upon Discharge: IMPROVED Disposition: HOME/ ROUTINE Follow-up Treatment Plan: At the time of the discharge pt denied been depressed, denied thoughts of harming self or others, denied psychotic symptoms, and pt does not appeared to be psychotic, denied been anxious, pt is not in imminent danger to self or others, information about follow up appointment, time and address provided to the pt, it is patient responsibility as well as POA to follow up with outpatient clinic, PMD as well as specialists (see SW note for more detailed information). In case pt will need to obtain results of studies pending at discharge pt was provided with contact information of Psychiatric Inpatient unit [phone] as well as Medical Record Department [phone]. pt was provided with prescriptions for all of medications (please see medication reconciliation form) Pt was educated about safety plan in case of worsening of symptoms or in case of suicidal or homicidal ideation call 911 or go to the nearest ER, also was educated to take meds as prescribed and stay away from drugs, pt verbalized understanding. Prescriptions/Medication Reconciliation: ALPRAZolam [Xanax] 0.25 mg PO DAILY PRN #14 tab PRN Reason: Anxiety Escitalopram [Lexapro] 10 mg PO DAILY #14 tab risperiDONE [RisperDAL Tab] 0.25 mg PO AMHS #30 tab - Smoking Cessation Smoking Cessation Medication prescribed: No Reason for not providing: denied smoking - Antipsychotic Medications Pt discharged on 2 or more routine antipsychotic medications: No
== END 2018-01-18 16:25 | disposition home or self-care (01) | DRG 885 ==
LOC: PSYC 16:09
PROVIDERS: ADMIT Psychiatry & Neurology Psychiatry; ATTEND Psychiatry & Neurology Psychiatry
DX: F29 Unspecified psychosis not due to a substance or known physiological condition (principal); N39.0 Urinary tract infection, site not specified; F13.20 Sedative, hypnotic or anxiolytic dependence, uncomplicated; G31.84 Mild cognitive impairment of uncertain or unknown etiology; F43.22 Adjustment disorder with anxiety; I10 Essential (primary) hypertension; Z72.820 Sleep deprivation; Z79.899 Other long term (current) drug therapy; F32.89 Other specified depressive episodes

== ENCOUNTER 2018-04-25 12:01 | Inpatient (IN) | payer BC, MEDICARE ==
[2018-04-25 12:12] VITALS: BMI 21.7
--- NOTE | 2018-04-25 13:30 | RAD ---
Date of service: 04/25/2018 HISTORY: Evaluate for pneumonia COMPARISON: No prior. TECHNIQUE: Chest PA and lateral FINDINGS: LINES AND TUBES: None. LUNG AND PLEURA: The lungs are well inflated and clear. No pleural effusion or pneumothorax. HEART AND MEDIASTINUM: The heart is not enlarged. There are aortic atherosclerotic calcifications present. The hilar and mediastinal contours are within normal limits. SKELETAL STRUCTURES: The bony structures are within normal limits for the patient's age. VISUALIZED UPPER ABDOMEN: Normal. OTHER FINDINGS: None. IMPRESSION: No active pulmonary disease.
[2018-04-25 14:09] LABS: BASO # 0.04 K/mm3 (0.0-2.0); BASO % 0.3 % (0.0-3.0); EOS % 0.2 % (1.5-5.0); GRAN # 10.16 (1.4-6.5); GRAN % 77.8 % (50.0-68.0); HEMOGLOBIN 12.4 g/dL (12.0-16.0); LYMPH # 1.9 (1.2-3.4); LYMPH % 14.2 % (22.0-35.0); MEAN CELL VOLUME 97.4 fl (80.0-105.0); MEAN CORPUSCULAR HEMOGLOBIN 31.9 pg (25.0-35.0); MEAN CORPUSCULAR HGB CONC 32.7 g/dl (31.0-37.0); MEAN PLATELET VOLUME 9.9 fl (7.0-11.0); MONO % 7.5 % (1.0-6.0); RBC 3.89 10^6/uL (3.5-6.1); RED CELL DISTRIBUTION WIDTH 13.4 % (11.5-14.5); WHITE BLOOD COUNT 13.1 10^3/uL (4.5-11.0)
--- NOTE | 2018-04-25 14:09 | ED PDOC ---
Arrival/HPI - General Chief Complaint: Psychiatric Evaluation Time Seen by Provider: 04/25/18 12:38 Historian: Patient, Family (step daughter) - History of Present Illness Narrative History of Present Illness (Text): 04/25/18 13:47 A 73 year old female, whose past medical history includes anxiety, presents to the emergency department accompanied by step-daughter complaining of a UTI, hallucinations and possible dementia for the past few days. Patient's daughter reports patient is agitated and forgetful. Per daughter, patient has had episode of hallucinations, one where she stayed in the car alone thinking people were in the car with her and similar episodes. Patient denies any fever, chills, shortness of breath, chest pain, headache, dizziness, or any other complaints. PMD: Dr. Frias Psychiatrist: Daniel Landers Time/Duration: Other (past few days) Symptom Onset: Gradual Symptom Course: Unchanged Activities at Onset: Light Context: Home Past Medical History - Provider Review Nursing Documentation Reviewed: Yes - Reproductive Menopause: Yes - Cardiac Hx Cardiac Disorders: No - Pulmonary Hx Respiratory Disorders: No - Neurological Hx Neurological Disorder: Yes Hx Alzheimer's Disease: Yes - HEENT Hx HEENT Disorder: No - Renal Hx Renal Disorder: No - Endocrine/Metabolic Hx Endocrine Disorders: No - Hematological/Oncological Hx Blood Disorders: No - Integumentary Hx Dermatological Disorder: No - Musculoskeletal/Rheumatological Hx Musculoskeletal Disorders: No Hx Falls: No - Gastrointestinal Hx Gastrointestinal Disorders: No - Genitourinary/Gynecological Hx Genitourinary Disorders: No Hx Urinary Tract Infection: Yes - Psychiatric Hx Anxiety: Yes Hx Depression: Yes Hx Substance Use: No - Anesthesia Hx Anesthesia: No Family/Social History - Physician Review Nursing Documentation Reviewed: Yes Family/Social History: No Known Family HX Smoking Status: Never Smoked Hx Alcohol Use: No Hx Substance Use: No Allergies/Home Meds Allergies/Adverse Reactions: Allergies No Known Allergies Allergy (Verified 04/25/18 12:26) Home Medications: Home Meds Medication Instructions Recorded Confirmed Clonazepam [Klonopin] 0.5 mg PO DAILY 04/25/18 04/25/18 Donepezil HCl [Aricept] 5 mg PO HS 04/25/18 04/25/18 Review of Systems - Physician Review All systems were reviewed & negative as marked: Yes - Review of Systems Constitutional: absent: Fevers, Other (chills) Respiratory: absent: SOB Cardiovascular: absent: Chest Pain Neurological: Other (forgetful, agitated). absent: Headache, Dizziness Physical Exam - Physical Exam Narrative Physical Exam (Text): 04/25/18 13:47 Gen: VS reviewed, alert, well developed, well nourished, nontoxic, mild distress, inappropriate responses to questions. ENT: normal pharynx. Eye: EOMI, PERRL. Neck: no JVD, supple, no adenopathy. CV: regular rate, regular rhythm, no rubs, no murmur, no gallops, S1, S2, pulses equal and strong. Pulm: no distress, clear to auscultation, no wheeze, no rhonchi, breath sounds equal, no rales. Abd: soft, nontender, no guarding, no rebound, no rigidity, normal bowel sounds. Ext: no edema. Skin: good color, no rash, no cyanosis. Psych: responds appropriately to questions, normal affect. Neuro: oriented x 3, CN2-12 intact grossly, motor intact, sensation intact. Vital Signs Reviewed: Yes Vital Signs Temp Pulse Resp BP Pulse Ox 04/25/18 12:12 97.7 F 91 H 18 134/61 97 Temperature: Afebrile Blood Pressure: Normal Pulse: Tachycardic Respiratory Rate: Normal Appearance: Positive for: Well-Appearing Mental Status: Positive for: Confused Medical Decision Making ED Course and Treatment: 04/25/18 13:47 Impression: 73 year old female presenting to the emergency room for hallucination and possible dementia. Plan: -- EKG -- Urine culture -- Reassess and disposition Prior Visits: Notes and results from previous visits were reviewed. Progress Notes: 04/25/18 15:05 admit accepted to service of dr. mercedes for hallucinations 04/25/18 16:26 Patient is medically stable for psych admission. - RAD Interpretation Narrative RAD Interpretations (Text): 04/25/18 14:48 Procedure: Chest X-Ray Dictator: Laquita Belcher Impression: No active pulmonary disease. Radiology Orders: 04/25/18 12:56 CXR [CHEST TWO VIEWS (PA/LAT)] [RAD] Stat Eyeglass Lens Grinder: Radiologist - EKG Interpretation EKG Interpretation (Text): 04/25/18 14:06 EKG: Ordered, reviewed, and independently interpreted the EKG. Rate : 82 BPM Rhythm : NSR Interpretation : Normal QRS, normal axis, no acute ST-T wave abnormalities. Interpreted by ED Physician: Yes - Scribe Statement The provider has reviewed the documentation as recorded by the Vinh Coats All medical record entries made by the Vinh were at my direction and personally dictated by me. I have reviewed the chart and agree that the record accurately reflects my personal performance of the history, physical exam, medical decision making, and the department course for this patient. I have also personally directed, reviewed, and agree with the discharge instructions and disposition. Disposition/Present on Arrival - Present on Arrival Any Indicators Present on Arrival: No History of DVT/PE: No History of Uncontrolled Diabetes: No Urinary Catheter: No History of Decub. Ulcer: No History Surgical Site Infection Following: None - Disposition Have Diagnosis and Disposition been Completed?: Yes Diagnosis: Psychosis Disposition: HOSPITALIZED Disposition Time: 20:47 Patient Plan: Admission Condition: STABLE
[2018-04-25 14:11] LABS: URINE BILIRUBIN NEGATIVE (NEGATIVE); URINE BLOOD TRACE-INTACT (NEGATIVE); URINE GLUCOSE (UA) NEGATIVE (NEGATIVE); URINE LEUKOCYTE ESTERASE NEGATIVE Leu/uL (NEGATIVE); URINE PROTEIN NEGATIVE mg/dL (<30 mg/dL); URINE UROBILINOGEN 0.2 E.U./dL (<1 E.U./dL)
[2018-04-25 14:17] LABS: ALB/GLOB RATIO 1.2 (1.1-1.8); ALBUMIN 4.4 g/dL (3.0-4.8); ALT/SGPT 24 U/L (7-56); AST/SGOT 28 U/L (14-36); BLOOD UREA NITROGEN 14 mg/dL (7-21); CALCIUM 9.8 mg/dL (8.4-10.5); GFR NON-AFRICAN AMERICAN > 60
[2018-04-25 14:18] LABS: URINE APPEARANCE CLEAR (CLEAR); URINE COLOR YELLOW (YELLOW)
[2018-04-25 14:28] LABS: BENZODIAZEPINES, UR NEGATIVE (NEGATIVE)
[2018-04-25 14:35] LABS: BARBITURATES, UR NEGATIVE (NEGATIVE); OPIATES, UR NEGATIVE (NEGATIVE); PHENCYCLIDINE, UR NEGATIVE (NEGATIVE)
[2018-04-25 14:38] LABS: URINE BACTERIA FEW /hpf; URINE WBC 0 - 2 /hpf (0-6)
[2018-04-25 19:20] VITALS: O2SAT 98
[2018-04-25] MEDS ORDERED: Alum-Mag Hydrox-Simethicone Susp (30 mL) PO PRN (22:06)
[2018-04-25] MEDS ORDERED: Magnesium Hydroxide Susp 30 ml UD PO PRN (22:06)
--- NOTE | 2018-04-25 22:55 | PCM.BM ---
<Jessica Diaz - Last Filed: 04/25/18 22:50> Treatment Plan Problems - Problems identified on initial assessmt altered thought process Date Initiated: 04/25/18 Time Initiated: 22:51 Assessment reference: NA Status: Active Altered sleep Date Initiated: 04/25/18 Time Initiated: 22:51 Assessment reference: NA Status: Active Treatment assets and liabiliti Patient Assests: cooperative, educated, motivated, ADL independent Patient Liabilities: live alone, imparied memory - Milieu Protocol Maintain good personal hygiene: daily Encourage regular showers, daily Remind patient to perform daily oral care, daily Assist patient to perform ADL's Conduct patient checks and document Observation sheet: Q15 minutes Maintain personal safety: daily Educate patient to report safety concerns to staff, daily Monitor environment for contraband/sharps Medication safety: Monitor for expected outcome, potential side effects: daily, Assess barriers to learning: daily, Assess readiness for medication education: daily Family Contact Family involvement: No known Family/SO Discharge/Continuing Care - Education Needs Education Needs: Patient Medication, Patient Diagnosis/Disease Process, Patient Coping Skills, Patient Community resources, Patient Activities of Daily Living, Patient Nutrition - Discharge Discharge Criteria: Tolerates medication w/o severe side effects, Normal sleep pattern, Ability to care for self Discharge to:: Home <Nadine Wilkerson - Last Filed: 04/28/18 17:02> Family Contact Family involvement: Family/SO is involved Family contact name: Lisa Townsend(step-daughter) Family contacted how many times per week?: 2
--- NOTE | 2018-04-26 08:39 | CARD ---
APPROVED REPORT Date of service: 04/25/2018 EKG Measurement Heart [id number] <Conclusion> Normal sinus rhythm LVH by voltage
[2018-04-26 08:40] LABS: GLUCOSE,FASTING 112 mg/dL (65-110); HDL CHOLESTEROL 56 mg/dL (29-60)
[2018-04-26 08:50] LABS: LDL CHOLESTEROL 91 mg/dL (0-129)
--- NOTE | 2018-04-26 09:00 | CON ---
DATE: 04/26/2018 HISTORY OF PRESENT ILLNESS: A 73-year-old white female with long history of anxiety disorder, depression, recent history of hallucinations. The patient has seen Dr. Thompson as an outpatient some, both the medications including Risperdal and Lexapro. The patient was seen recently in my office with early signs of urinary tract infection which was treated. The patient again continued to have some hallucinations but the family was brought to the emergency room and was admitted to the psych unit by Dr. Thompson. The patient is seen this morning. PHYSICAL EXAMINATION GENERAL: Well-developed, alert white female, in no apparent distress. VITAL SIGNS: Temperature is 99 and blood pressure 126/70. HEENT: Essentially within normal limits. HEART: Regular sinus rhythm. No murmurs. CHEST: Clear to auscultation. There is no CVA tenderness. EXTREMITIES: Without cyanosis, clubbing, or edema. NEUROLOGICAL: Grossly intact. LABORATORY DATA: Her white count is 13,100. The patient has no complaints today. She has no dysuria, hematuria. No back pain. She only states that she where she is. Her urinalysis showed 2-5 RBCs, 3-4 epithelial cells, few bacteria, 0-2 white cells, trace blood, otherwise her laboratory data is unremarkable. The patient will be given p.o. antibiotics and we will follow along with Dr. Thompson for her inpatient counseling. Vaughn Frias MD
--- NOTE | 2018-04-26 13:27 | PCM.PSYCH ---
Initial Psychiatric Evaluation - Initial Psychiatric Evaluation Type of Admission: Voluntary Legal Status: Capacity Chief Complaint (in patient's own words): Patient admitted after concern expressed by family as patient wandering, responding to people that are not there they are and showing mood lability. Had been hospitalized in January for similar reason. Patient's Reaction to Hospitalization: Patient lacks insight. Does not want to be in the hospital. Wants to go home. History of Present Illness and Precipitating Events: Family had called expressing concern about the patient's bizarre behavior and ability to care for herself The patient failed the outpatient lower level of care: Yes Current Medications: Active Medications Generic Name Dose Route Start Last Admin Trade Name Freq PRN Reason Stop Dose Admin Acetaminophen 650 mg 04/25/18 22:06 04/25/18 22:31 Tylenol 325mg Tab PO 650 mg Q6H PRN Administration Pain, moderate (4-7) Al Hydrox/Mg Hydrox/Simethicone 30 ml 04/25/18 22:06 Maalox Plus 30 Ml PO DAILY PRN Upset Stomach Clonazepam 0.5 mg 04/26/18 08:00 04/26/18 09:42 Klonopin PO 0.5 mg DAILY IVANNA Administration Protocol Donepezil HCl 5 mg 04/25/18 22:15 04/25/18 22:25 Aricept PO 5 mg HS IVANNA Administration Escitalopram Oxalate 10 mg 04/26/18 08:00 04/26/18 09:42 Lexapro PO 10 mg DAILY IVANNA Administration Lorazepam 0.5 mg 04/25/18 22:06 Ativan PO Q6H PRN Anxiety Protocol Magnesium Hydroxide 30 ml 04/25/18 22:06 Milk Of Magnesia PO DAILY PRN Constipation Risperidone 0.25 mg 04/26/18 08:00 04/26/18 09:42 Risperdal Tab PO 0.25 mg DAILY IVANNA Administration Protocol Risperidone 0.5 mg 04/25/18 22:15 04/25/18 22:25 Risperdal Tab PO 0.5 mg HS IVANNA Administration Protocol Present on Admission - Present on Admission Any Indicators Present on Admission: No History of DVT/PE: No History of Uncontrolled Diabetes: No Urinary Catheter: No Decubitus Ulcer Present: No Review of Systems - Review of Systems Systems not reviewed;Unavailable: Dementia, Altered Mental Status, Psychotic - Constitutional Constitutional: As Per HPI - EENT Eyes: As Per HPI Ears: As Per HPI Nose/Mouth/Throat: As Per HPI - Breasts Breasts: As Per HPI - Cardiovascular Cardiovascular: As Per HPI - Respiratory Respiratory: As Per HPI - Gastrointestinal Gastrointestinal: As Per HPI - Genitourinary Genitourinary: As Per HPI - Reproductive: Female Reproductive:Female: As Per HPI - Neurological Neurological: Confusion, Memory Loss - Psychiatric Psychiatric: Anxiety, Confusion, Difficulty Concentrating, Hallucinations, Memory Loss, Visual Hallucinations - Endocrine Endocrine: As Per HPI - Hematologic/Lymphatic Hematologic: As Per HPI Past Patient History - Past Psychiatric History Prior Professional Help: Presently under my care for both mood and cognitive disorder Prior Psychiatric Treatment: Has been hospitalized several months ago for similar scenario At [facility] hospital: At [facility] Duration: Approximately 1 week Nature of Treatment: Evaluation and stabilization - PSYCHIATRIC Hx Psychophysiologic Disorder: No Hx Anxiety: Yes Hx Bipolar Disorder: No Hx Depression: No Hx Emotional Abuse: No Hx Hallucinations: Yes (Recent) Hx Panic Symptoms: No Hx Paranoia: No Hx Post Traumatic Stress Disorder: No Hx Psychosis: Yes (Recent) Hx Physical Abuse: No Hx Schizophrenia: No Hx Sexual Abuse: No Hx Substance Use: No - Infectious Disease Hx of Infectious Diseases: None - Tetanus Immunizations Tetanus Immunization: Unknown - Past Medical History & Family History Past Medical History?: Yes - Past Social History 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 Alcohol: None Drugs: Denies Domestic Violence: Negative - CARDIAC Hx Cardiac Disorders: No Hx Angina: No Hx Atrial Fibrillation: No Hx Cardia Arrhythmia: No Hx Circulatory Problems: No Hx Congestive Heart Failure: No Hx Heart Attack: No Hx Heart Murmur: No Hx Heart Transplant: No Hx Hypercholesterolemia: No Hx Hypertension: Yes Hx Hypotension: No Hx Internal Defibrillator: No Hx Mitral Valve Prolapse: No Hx Pacemaker: No Hx Peripheral Edema: No Hx Peripheral Vascular Disease: No - PULMONARY Hx Respiratory Disorders: No Hx Asthma: No Hx Bronchitis: No Hx Chronic Obstructive Pulmonary Disease (COPD): No Hx Emphysema: No Hx Lung Cancer: No Hx Pneumonia: No Hx Pulmonary Edema: No Hx Pulmonary Embolism: No Hx Respiratory Aspiration: No Hx Respiratory Tract Infection: No Hx Sleep Apnea: No Hx Tuberculosis: No - NEUROLOGICAL Hx Neurological Disorder: Yes (Possible cerebrovascular changes) Hx Alzheimer's Disease: Yes ( possibly) HX Cerebrovascular Accident: No Hx Dementia: Yes (Recent) Hx Dizziness: No Hx Meningitis: No Hx Paralysis: No Hx Parkinson's Disease: No Hx Seizures: No Hx Syncope: No Hx Transient Ischemic Attacks (TIA): No Hx Vertigo: No (This is for the hospital's medical doctor. This physician's) - HEENT Hx HEENT Problems: No Hx Blind: No Hx Cataracts: No ( office this is a question of this is a slight event) Hx Deafness: No Hx Difficulty Chewing: No Hx Epistaxis: No (The right) Hx Glaucoma: No Hx Macular Degeneration: No Hx Sinusitis: No - RENAL Hx Chronic Kidney Disease: No Hx Dialysis: No Hx Kidney Stones: No Hx Neurogenic Bladder: No Hx Pyelonephritis: No Hx Renal (Kidney) Cancer: No Hx Renal Failure: No (Number) - ENDOCRINE/METABOLIC Hx Endocrine Disorders: No Hx Adrenal Cancer: No Hx Diabetes Insipidus: No Hx Diabetes Mellitus Type 1: No Hx Diabetes Mellitus Type 2: No Hx Hyperthyroidism: No Hx Systemic Lupus Erythematosus: No - HEMATOLOGICAL/ONCOLOGICAL Hx Blood Disorders: No Hx AIDS: No Hx Anemia: No Hx Blood Transfusions: No Hx Blood Transfusion Reaction: No Hx Bruising: No (This is a) Hx Cancer: No Hx Chemotherapy: No Hx Cirrhosis: No Hx Gum Bleeding: No Hx Hemophilia: No Hx Hepatitis C: No Hx Human Immunodeficiency Virus (HIV): No Hx Leukemia: No Hx Lymphoma: No Hx Metastesis: No Hx Shingles: No Hx Sickle Cell Trait: No Hx Sickle Cell Disease: No (0 way to just keep with the ones sweeping the wall that is) Hx Unexplained Bleeding: No Hx von Willebrand's Disease: No - INTEGUMENTARY Hx Dermatological Problems: No Hx Basil Cell: No Hx Skinner: No Hx Cellulitis: No Hx Eczema: No Hx Melanoma: No Hx Psoriasis: No - MUSCULOSKELETAL/RHEUMATOLOGICAL Hx Musculoskeletal Disorders: No Hx Arthritis: No Hx Back Pain: No Hx Degenerative Joint Disease: No Hx Falls: No Hx Fractures: No Hx Gout: No Hx Herniated Disk: No Hx Myasthenia Gravis: No Hx Osteoarthritis: No Hx Osteomyelitis: No Hx Osteoporosis: No Hx Rhabdomyolysis: No Hx Rheumatoid Arthritis: No (You can click the right side also my notification some mild edema) Hx Spinal Stenosis: No Hx Unsteady Gait: No - GASTROINTESTINAL Hx Gastrointestinal Disorders: No Hx Bowel Surgery: No Hx Clostridium Difficile: No Hx Colitis: No Hx Colostomy: No Hx Constipation: No - GENITOURINARY/GYNECOLOGICAL Hx Genitourinary Disorders: No Hx Urinary Tract Infection: Yes - SURGICAL HISTORY Hx Surgeries: No - ANESTHESIA Hx Anesthesia: No Meds Allergies/Adverse Reactions: Allergies Allergy/AdvReac Type Severity Reaction Status Date / Time No Known Allergies Allergy Verified 04/25/18 22:35 Mental Status Examination - Personal Presentation Personal Presentation: Looks older than stated age - Affect Affect: Other - Motor Activity Motor Activity: Psychomotor Agitation - Reliability in Providing Information Reliability in Providing Information: Fair - Speech Speech: Other Additional comments: Pressured - Mood Mood: Anxious - Formal Thought Process Formal Thought Process: Hallucinations, Delusions, Loosening of associations - Hallucinations/Delusions Hallucinations: Visual - Obsessions/Compulsions Obsessions: None Compulsions: None - Cognitive Functions Orientation: Person, Place, Time Sensorium: Alert Attention/Concentration: Easily distracted Estimate of Intelligence: Above Average Judgement: Imparied, as evidence by: Poor judgement, Imparied, as evidence by: Lack of insight into illness, Imparied, as evidence by: Other Memory: Recent impaired, as evidenced by: Other - Risk Risk: Diminished functioning - Strength & Assets Inventory Strength & Assets Inventory: Intelligence, Family support, Education - Limitations Limitations: Living alone, Decreased memory, recent Psychiatric Physical Exam - Constitutional Appears: Well - Head Exam Head Exam: ATRAUMATIC - Eye Exam Eye Exam: EOMI, Normal appearance, PERRL Pupil Exam: NORMAL ACCOMODATION, PERRL - ENT Exam ENT Exam: Mucous Membranes Moist, Normal Exam - Neck Exam Neck exam: Positive for: Normal Inspection - Respiratory Exam Respiratory Exam: Clear to Auscultation Bilateral, NORMAL BREATHING PATTERN - Cardiovascular Exam Cardiovascular Exam: REGULAR RHYTHM - GI/Abdominal Exam GI & Abdominal Exam: Normal Bowel Sounds, Soft. absent: Tenderness - Rectal Exam Rectal Exam: NORMAL INSPECTION - Exam Exam: NORMAL INSPECTION External exam: NORMAL EXTERNAL EXAM Speculum exam: NORMAL SPECULUM EXAM Bimanual exam: NORMAL BIMANUAL EXAM - Extremities Exam Extremities exam: Positive for: normal inspection - Back Exam Back exam: NORMAL INSPECTION - Neurological Exam Neurological exam: Altered - Psychiatric Exam Psychiatric exam: Anxious, Manic - Skin Skin Exam: Dry, Intact, Normal Color, Warm Results - Vital Signs Recent Vital Signs: Last Vital Signs Temp 99.0 F 04/26/18 07:38 Pulse 96 H 04/26/18 07:38 Resp 20 04/26/18 07:38 BP 126/70 04/26/18 07:38 Pulse Ox 98 04/25/18 18:55 - Labs Result Diagrams: 04/25/18 13:53 04/25/18 13:53 Labs: Laboratory Results - last 24 hr 04/25/18 04/25/18 04/25/18 13:53 13:53 13:53 WBC 13.1 H RBC 3.89 Hgb 12.4 Hct 37.9 MCV 97.4 MCH 31.9 MCHC 32.7 RDW 13.4 Plt Count 294 MPV 9.9 Gran % 77.8 H Lymph % (Auto) 14.2 L [place] % (Auto) 7.5 H Eos % (Auto) 0.2 L Baso % (Auto) 0.3 Gran # 10.16 H Lymph # (Auto) 1.9 [place] # (Auto) 1.0 H Eos # (Auto) 0.0 Baso # (Auto) 0.04 Sodium 142 Potassium 3.7 Chloride 103 Carbon Dioxide 32 Anion Gap 11 BUN 14 Creatinine 0.8 Est GFR ( Amer) > 60 Est GFR (Non-Af Amer) > 60 Random Glucose 102 Fasting Glucose Calcium 9.8 Magnesium 2.2 Total Bilirubin 0.4 AST 28 ALT 24 Alkaline Phosphatase 65 Total Protein 7.9 Albumin 4.4 Globulin 3.5 Albumin/Globulin Ratio 1.2 Triglycerides Cholesterol LDL Cholesterol Direct HDL Cholesterol TSH 3rd Generation Urine Color Yellow Urine Appearance Clear Urine pH 7.0 Ur Specific [place] 1.010 Urine Protein Negative Urine Glucose (UA) Negative Urine Ketones Negative Urine Blood Trace-intact H Urine Nitrate Negative Urine Bilirubin Negative Urine Urobilinogen 0.2 Ur Leukocyte Esterase Negative Urine RBC 2 - 5 H Urine WBC 0 - 2 Ur Epithelial Cells 3 - 4 Urine Bacteria Few Urine Opiates Screen Urine Methadone Screen Ur Barbiturates Screen Ur Phencyclidine Scrn Ur Amphetamines Screen U Benzodiazepines Scrn U Oth Cocaine Metabols U Cannabinoids Screen 04/25/18 04/26/18 04/26/18 13:53 08:26 08:26 WBC RBC Hgb Hct MCV MCH MCHC RDW Plt Count MPV Gran % Lymph % (Auto) [place] % (Auto) Eos % (Auto) Baso % (Auto) Gran # Lymph # (Auto) [place] # (Auto) Eos # (Auto) Baso # (Auto) Sodium Potassium Chloride Carbon Dioxide Anion Gap BUN Creatinine Est GFR ( Amer) Est GFR (Non-Af Amer) Random Glucose Fasting Glucose 112 H Calcium Magnesium Total Bilirubin AST ALT Alkaline Phosphatase Total Protein Albumin Globulin Albumin/Globulin Ratio Triglycerides 75 Cholesterol 174 LDL Cholesterol Direct 91 HDL Cholesterol 56 TSH 3rd Generation 0.70 Urine Color Urine Appearance Urine pH Ur Specific [place] Urine Protein Urine Glucose (UA) Urine Ketones Urine Blood Urine Nitrate Urine Bilirubin Urine Urobilinogen Ur Leukocyte Esterase Urine RBC Urine WBC Ur Epithelial Cells Urine Bacteria Urine Opiates Screen Negative Urine Methadone Screen Negative Ur Barbiturates Screen Negative Ur Phencyclidine Scrn Negative Ur Amphetamines Screen Negative U Benzodiazepines Scrn Negative U Oth Cocaine Metabols Negative U Cannabinoids Screen Negative - EKG Data EKG Interpreted by: ER Physician DSM Plan - DSM 5 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 - Recommended/Plan of Treatment Treatment Recommendations and Plan of Treatment: Assessment and stabilization Projected ELOS: 1 week Prognosis: Somber Discharge Plan and Discharge Criteria: Patient may not be able to resume living by self, may need supervised living situation upon discharge - Tobacco Cessation Tobacco Use Treatment Practical Counseling Provided: No Tobacco Use Treatment FDA-Approved Cessation Medication Provided: No - Alcohol or Substance Abuse Does the patient have an Alcohol or Substance Abuse Disorder: No Initial Psych Certification - Initial Certification I certify that the inpatient psychiatric facility admission was medically necessary for either: Treatment which could reasonbly be expected to improve pt's condition
--- NOTE | 2018-04-27 08:07 | CON ---
DATE: 04/26/2018 NEUROLOGY CONSULT CHIEF COMPLIANT: Evaluation for mental status. HISTORY OF PRESENT ILLNESS: I have seen this patient on 01/11/2018, in which I have stated that she has some evidence of mild cognitive impairment, superimposed underlying depression, anxiety, and some adjustment disorder possibility too. I have recommended at that time to place her on Aricept 10 mg p.o. daily for cognition and thiamine 100 mg p.o. daily in addition to her psychiatric medications. I also recommend to avoid sedative medications and provide attention and concentration exercise throughout the day to avoid behavioral disturbances. She has disorganized thought and disassociation. Currently, not hallucinating at this time. PAST MEDICAL HISTORY: History of hypertension, anxiety disorder, and depression. REVIEW OF SYSTEMS: A 14-point review of systems is negative except as per HPI. SOCIAL HISTORY: No illicit drug use, smoking, or EtOH abuse. FAMILY HISTORY: Noncontributory. MEDICATIONS: Reviewed by nurse's reconciliation sheet. LABORATORY DATA: Today's blood sugar is 112. PHYSICAL EXAMINATION GENERAL: The patient is seen up in bed. No acute distress. VITAL SIGNS: Temperature 98.8, pulse rate is 74, blood pressure 140/66, respiratory rate of 18, oxygen saturation 98% on room air. HEENT: Atraumatic and normocephalic. PERRLA. Extraocular muscles intact. NECK: Supple. No JVD. No adenopathy noted. LUNGS: Clear to auscultation. No adventitious sounds. HEART: S1 and S2. Normal rate and rhythm. No murmurs, rubs, or gallops. ABDOMEN: Soft, nontender, and nondistended. Bowel sounds are present. EXTREMITIES: No clubbing. No cyanosis. Peripheral pulses are 2+ felt bilaterally NEUROLOGIC: The patient is alert and oriented to person, place, month and year. Speech is fluent without any errors. Recall after 5 minutes is 0/3. Poor attention span. Slow thought process, very disorganized thoughts and loose associations. Diminished attention span. Her mini mental status examination was 27/30. Cranial nerves II through XII are intact. Motor: Slightly increased tone throughout, moves all extremities equally. Toes downgoing bilaterally. Sensory: Light touch, pinprick, proprioception and vibration are intact. DTRs are 2+ throughout. Coordination: [id number]-dzle is intact. No dysmetria noted. Gait is normal. IMPRESSION: She does have evidence of mild cognitive impairment, superimposed underlying depression and anxiety with some adjustment disorder too with some loose associations. RECOMMENDATIONS: At this time, we recommend: 1. Consider Aricept 10 mg p.o. daily for cognition and thiamine 100 mg p.o. daily. 2. Advice attention and concentration exercise. 3. Follow up delirium precautions. 4. Avoid sedating medications. She can followup as an outpatient for dementia workup. Thank you for this consult. Palmer Whitehead MD
--- NOTE | 2018-04-27 12:21 | PCM.PYCHPN ---
Psychiatric Progress Note - Psychiatric Progress Note Patient Chief Complaint: Patient admitted after concern expressed by family as patient wandering, responding to people that are not there they are and showing mood lability. Had been hospitalized in January for similar reason. Problems Identified/Issues Discussed: Patient remains disorganized but less so I have discussed with her my conversation with her stepdaughter Hudson and his our mutual concerns about her behavior which consists of intermittent severe disorganization and occasional visual hallucinations. Patient is in denial of the full extent of her disability. I have underscored the patient the need to get a home health administrator, something that Hudson has agreed with also. Discussed also with social work. 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 cardiology note reviewed and possible UTI Medical Problems: Possible UTI has elevated white count. Neurology has prostate psychiatry with the extent of the patient's cognitive impairment although this fluctuates Diagnostic Results: Abnormal Lab Results 04/26/18 06:00 RPR Nonreactive DSM 5 Symptoms Update: Alert, less confused today than yesterday, unrealistic, speaks of going back to work. Ambivalent about a home health administrator but in any event looks appointed as to be limited for 3 days a week. We are recommending a full living schedule. Medication Change: No Medical Record Reviewed: Yes Consults ordered or reviewed: Reviewed Dr. camara and Dr. Whitehead's notes Mental Status Examination - Cognitive Function Orientation: Person, Place, Time Memory: Impaired, Other Association: WNL Decription of patient's judgement and insights: Impaired - Mood Mood: Anxious, Other - Affect Affect: Other - Speech Speech: Appropriate - Formal Thought Process Formal Thought Process: Hallucinations, Delusions, Loosening of associations Psychotic Thoughts and Behaviors: Not presently. Has had visual hallucinations and facial distortions as recently as yesterday as demonstrated by mistaking nursing education specialist for "Darin" - Suicidal Ideation Suicidal Ideation: No - Homicidal Ideation Homicidal Ideation: No Goal/Treatment Plan - Goal/Treatment Plan Need for Continued Stay: Remain at risks for inpatient hospitalization, Severe functional impairment Progress Toward Problem(s) and Goals/Treatment Plan: Assessment and stabilization Estimated Date of D/C: 05/01/18 - Smoking Cessation Smoking Cessation Initiated: No Reason for not providing: Non-smoker
[2018-04-28 08:04] LABS: BASO # 0.04 K/mm3 (0.0-2.0); BASO % 0.4 % (0.0-3.0); EOS # 0.1 (0.0-0.7); EOS % 0.7 % (1.5-5.0); GRAN # 7.11 (1.4-6.5); GRAN % 72.3 % (50.0-68.0); HEMOGLOBIN 11.9 g/dL (12.0-16.0); LYMPH # 1.9 (1.2-3.4); LYMPH % 18.9 % (22.0-35.0); MEAN CORPUSCULAR HEMOGLOBIN 31.6 pg (25.0-35.0); MEAN CORPUSCULAR HGB CONC 32.9 g/dl (31.0-37.0); MEAN PLATELET VOLUME 9.5 fl (7.0-11.0); MONO # 0.8 (0.1-0.6); MONO % 7.7 % (1.0-6.0); RBC 3.77 10^6/uL (3.5-6.1); RED CELL DISTRIBUTION WIDTH 13.1 % (11.5-14.5); WHITE BLOOD COUNT 9.8 10^3/uL (4.5-11.0)
--- NOTE | 2018-04-28 12:06 | PCM.PYCHPN ---
Psychiatric Progress Note - Psychiatric Progress Note Patient seen today, length of contact: 25min Patient Chief Complaint: Patient admitted after concern expressed by family as patient wandering, responding to people that are not there they are and showing mood lability. Had been hospitalized in January for similar reason. Problems Identified/Issues Discussed: Patient remains disorganized but less so I have discussed with her my conversation with her stepdaughter Hudson and his our mutual concerns about her behavior which consists of intermittent severe disorganization and occasional visual hallucinations. Patient is in denial of the full extent of her disability. I have underscored the patient the need to get a nursing home assistant administrator, something that Hudson has agreed with also. Discussed also with social work. 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 cardiology note reviewed and possible UTI Medical Problems: Possible UTI has elevated white count. Neurology has prostate psychiatry with the extent of the patient's cognitive impairment although this fluctuates Diagnostic Results: Abnormal Lab Results 04/26/18 06:00 RPR Nonreactive DSM 5 Symptoms Update: Remains disorganized and confused. As of the impression that she has anger and poor impulse control issues, which she may have but not presently. Illicits much pathos. Speaks still of finding a job upon her discharge from the hospital presently. Medication Change: No Medical Record Reviewed: Yes Mental Status Examination - Cognitive Function Orientation: Person, Place, Time Memory: Impaired, Other Association: WNL Decription of patient's judgement and insights: Impaired - Mood Mood: Anxious, Other - Affect Affect: Other - Speech Speech: Appropriate - Formal Thought Process Formal Thought Process: Hallucinations, Delusions, Loosening of associations Psychotic Thoughts and Behaviors: Not presently. Has had visual hallucinations and facial distortions as recently as yesterday as demonstrated by mistaking director of nursing for "Darin" - Suicidal Ideation Suicidal Ideation: No - Homicidal Ideation Homicidal Ideation: No Goal/Treatment Plan - Goal/Treatment Plan Need for Continued Stay: Remain at risks for inpatient hospitalization, Severe functional impairment Progress Toward Problem(s) and Goals/Treatment Plan: Assessment and stabilization Estimated Date of D/C: 05/01/18
--- NOTE | 2018-04-28 14:54 | PN ---
DATE: 04/28/2018 SUBJECTIVE: The patient is a 73-year-old, seen and examined, ambulating in the hallway, complain of having some urinary discomfort. She says she was treated, but she want to make sure that her urine infection is gone. Otherwise, she offers no complain. PAST MEDICAL HISTORY: She has significant past medical history of; 1. Hypertension. 2. Anxiety disorder. 3. History of depression. PHYSICAL EXAMINATION GENERAL: She is awake, alert,oriented, and communicative. VITAL SIGNS: She is afebrile, pulse 88, respirations 20, and blood pressure 134/74. LUNGS: Bilateral fair airflow. No rhonchi or crackle. HEART: S1 and S1 audible. ABDOMEN: Soft and nontender. No rebound and no guarding. NEUROLOGICAL: The patient is awake, alert, oriented, and communicative. LABORATORY DATA: WBC 9.8, hemoglobin 11.9, hematocrit 36.2 and platelet 299. Chemistry; sodium 142, potassium 3.7, chloride 103, CO2 of 32, BUN 14 and creatinine 0.8. Blood sugar of 112. Urine toxicology is negative. negative. ASSESSMENT: 1. Anxiety disorder. 2. Mild dementia. 3. History of depression. PLAN: Her MAR reviewed, currently she is on Aricept. She is on Risperdal, Lexapro, and psych medications are being adjusted by the psychiatrist. I will order for urine analysis and follow that. Papo Silva MD
[2018-04-28 21:24] LABS: PH,URINE 6.5 (4.7-8.0); URINE APPEARANCE CLEAR (CLEAR); URINE BILIRUBIN NEGATIVE (NEGATIVE); URINE BLOOD TRACE-INTACT (NEGATIVE); URINE COLOR YELLOW (YELLOW); URINE GLUCOSE (UA) NEGATIVE (NEGATIVE); URINE LEUKOCYTE ESTERASE TRACE Leu/uL (NEGATIVE); URINE PROTEIN TRACE mg/dL (<30 mg/dL); URINE UROBILINOGEN 0.2 E.U./dL (<1 E.U./dL)
[2018-04-28 21:28] LABS: URINE CALCIUM OXALATE CRYSTALS FEW /hpf; URINE RBC 0 - 2 /hpf (0-2); URINE WBC 0 - 2 /hpf (0-6)
--- NOTE | 2018-04-29 10:10 | PCM.PYCHPN ---
Psychiatric Progress Note - Psychiatric Progress Note Patient seen today, length of contact: 25min Problems Identified/Issues Discussed: I reviewed assessment and recent notes. Grooming is adequate and patient is oriented x3. She is engaged and communicative. Reports that she is feeling "all right" and denies any new concerns. Thus far she is tolerating her medications and "doesn't have any judgement about them" since she just started taking them. She denies AVH "this is ancient history". Patient has been visible on the unit and engages in activities with other patients. Staff noticed that she has periods of lability and confusion. There were no behavioral issues overnight. 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 Medication Change: No Medical Record Reviewed: Yes Mental Status Examination - Cognitive Function Orientation: Person, Place, Time Memory: Impaired, Other Association: WNL - Mood Mood: Anxious, Other ("all right") - Affect Affect: Other (labile) - Speech Speech: Appropriate - Formal Thought Process Formal Thought Process: Hallucinations (denies), Delusions, Loosening of associations - Suicidal Ideation Suicidal Ideation: No - Homicidal Ideation Homicidal Ideation: No Goal/Treatment Plan - Goal/Treatment Plan Need for Continued Stay: Remain at risks for inpatient hospitalization, Severe functional impairment Progress Toward Problem(s) and Goals/Treatment Plan: * c/w current tx and plan * Vitals reviewed and noted below: Selected Entries 04/29/18 07:26 Temperature 98.3 F Pulse Rate 87 Respiratory 20 Rate Blood Pressure 115/54 L * No new weekend lab results noted thus far Estimated Date of D/C: 05/01/18
--- NOTE | 2018-04-30 10:13 | PCM.PYCHPN ---
Psychiatric Progress Note - Psychiatric Progress Note Patient seen today, length of contact: 25min Problems Identified/Issues Discussed: I reviewed recent notes and met with patient in the dayroom. Grooming is adequate and patient is superficially oriented x3. She is engaged and communicative but forgetful. Reports that she is feeling "all right" and denies any new concerns except for constipation. Thus far she is tolerating her medications and "doesn't have any judgement about them" since she just started taking them. Slept well last night. She denies AVH "this is ancient history". Patient has been visible on the unit and engages in activities with other patients. Staff noticed that she still has periods of lability, wandering and confusion. There were no behavioral issues overnight. 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 Medication Change: No Medical Record Reviewed: Yes Mental Status Examination - Cognitive Function Orientation: Person, Place, Time Memory: Impaired, Other Association: WNL - Mood Mood: Anxious, Other ("all right") - Affect Affect: Other (anxious) - Speech Speech: Appropriate - Formal Thought Process Formal Thought Process: Hallucinations (denied all weekend and doesn't appear to be responding to internal stimuli), Delusions, Loosening of associations - Suicidal Ideation Suicidal Ideation: No - Homicidal Ideation Homicidal Ideation: No Goal/Treatment Plan - Goal/Treatment Plan Need for Continued Stay: Remain at risks for inpatient hospitalization, Severe functional impairment Progress Toward Problem(s) and Goals/Treatment Plan: * c/w current tx and plan * Vitals reviewed and noted below: Selected Entries 04/30/18 07:00 Temperature 98.2 F Pulse Rate 79 Respiratory 19 Rate Blood Pressure 129/90 * No new weekend lab results noted thus far * Patient with complaints of constipation, reminded patient to request MOM prn f rom staff for this issue. Estimated Date of D/C: 05/01/18
[2018-05-01 07:17] VITALS: RESP 20
--- NOTE | 2018-05-02 08:11 | PN ---
DATE: 05/01/2018 SUBJECTIVE: This is a 73-year-old white female admitted in a confused and delusional state in what appears to be a manifestation of a disorder. The patient elicits much . She has little insight, she cannot fully assess the nature of or level of cognitive impairment she is exhibiting and therefore minimizes her behavior, which has led to her becoming wandering, agitated, at times having visual hallucinations, at times being paranoid. 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 She is not dismissing our concern/recommendation as she has some home assistance, but she is indicating she wants to be able to be the person to select that person (that her stepdaughter, Hudson, who has been helpful in overlooking her care). She has been resistant to take her medications. I have discussed her case with nursing. I am unable to give a metabolic or updated profile due to one of a number of unfortunately frequent computer failure/phrases, making a now repeated fiasco of this accessibility to medical records. We will discuss further with social media marketing analyst and with Hudson with regards to arranging for appropriate home care and perhaps further stabilization of her medication needs while in the hospital. The patient's long-term prognosis for independent living is grim. PHYSICAL EXAMINATION VITAL SIGNS: Blood pressure 120/70, temperature 97.4, pulse 95 Daniel Thompson MD/ PhD
[2018-05-03 07:13] VITALS: TEMP 98.4
--- NOTE | 2018-05-03 11:47 | PN ---
DATE: 05/03/2018 SUBJECTIVE: A 73-year-old white female was admitted to the Psychiatric unit under the care of Dr. Thompson. We will called in consultation initially, because the patient was treated for an outpatient urinary tract infection. She has no further infection. Repeat urine is clear. PHYSICAL EXAMINATION: VITAL SIGNS: She is afebrile. Vital signs are stable. Temperature is 98.7, her blood pressure 127/68, heart rate 77. GENERAL: The patient is seen. She is awake and alert and oriented x3. However, she is talking and having some confused conversation as far as "hiring a donor services team leader to get her out of here". CHEST: Clear to auscultation and percussion. HEART: . ABDOMEN: Benign. EXTREMITIES: Without cyanosis, clubbing, or edema. LABORATORY DATA: Her white count is 9.8, hemoglobin is 11.9. ASSESSMENT AND PLAN: Case was discussed with Dr. Thompson. The patient is tolerating medications well. She states her is normal. She is sleeping somewhat better, but she still not reporting any auditory or visual hallucinations at this time. She did not appear to be suicidal or homicidal. Vaughn Frias MD
--- NOTE | 2018-05-03 13:01 | PCM.PYCHPN ---
Psychiatric Progress Note - Psychiatric Progress Note Patient seen today, length of contact: 25min Patient Chief Complaint: "Thank you Dr. Davenport, thank you for all of your help, initially I did not want to have any help at home, but now I think that it would be a good choice for me, by the way how are your kids, how family?" Problems Identified/Issues Discussed: Suicide/ homicide prevention, past psychiatric h/o, current psychiatric symptoms, medical problems, risk/benefits and alternatives of medications, medications compliance, coping strategies, substance abuse h/o, relapse prevention, importance of follow up with psychiatrist and therapist, discharge plan. Medical Problems: History of urinary tract infection, hypertension, dementia Diagnostic Results: 04/28/18 08:00 04/25/18 13:53 Lab Results 04/28/18 21:00: Urine Color Yellow, Urine Appearance Clear, Urine pH 6.5, Ur Specific Gobler 1.020, Urine Protein Trace H, Urine Glucose (UA) Negative, Urine Ketones Trace H, Urine Blood Trace-intact H, Urine Nitrate Negative, Urine Bilirubin Negative, Urine Urobilinogen 0.2, Ur Leukocyte Esterase Trace H, Urine RBC 0 - 2, Urine WBC 0 - 2, Ur Epithelial Cells 1 - 3, Calcium Oxalate Crystal Few 04/28/18 08:00: WBC 9.8 D, RBC 3.77, Hgb 11.9 L, Hct 36.2, MCV 96.0, MCH 31.6, MCHC 32.9, RDW 13.1, Plt Count 299, MPV 9.5, Gran % 72.3 H, Lymph % (Auto) 18.9 L, Pepin % (Auto) 7.7 H, Eos % (Auto) 0.7 L, Baso % (Auto) 0.4, Gran # 7.11 H, Lymph # (Auto) 1.9, Pepin # (Auto) 0.8 H, Eos # (Auto) 0.1, Baso # (Auto) 0.04 04/26/18 08:26: TSH 3rd Generation 0.70 04/26/18 08:26: Fasting Glucose 112 H, Triglycerides 75, Cholesterol 174, LDL Cholesterol Direct 91, HDL Cholesterol 56 04/26/18 06:00: RPR Nonreactive 04/25/18 13:53: Urine Opiates Screen Negative, Urine Methadone Screen Negative, Ur Barbiturates Screen Negative, Ur Phencyclidine Scrn Negative, Ur Amphetamines Screen Negative, U Benzodiazepines Scrn Negative, U Oth Cocaine Metabols Negative, U Cannabinoids Screen Negative 04/25/18 13:53: Sodium 142, Potassium 3.7, Chloride 103, Carbon Dioxide 32, Anion Gap 11, BUN 14, Creatinine 0.8, Est GFR ( Amer) > 60, Est GFR (Non- Af Amer) > 60, Random Glucose 102, Calcium 9.8, Magnesium 2.2, Total Bilirubin 0.4, AST 28, ALT 24, Alkaline Phosphatase 65, Total Protein 7.9, Albumin 4.4, Globulin 3.5, Albumin/Globulin Ratio 1.2 04/25/18 13:53: Urine Color Yellow, Urine Appearance Clear, Urine pH 7.0, Ur Specific Gobler 1.010, Urine Protein Negative, Urine Glucose (UA) Negative, Urine Ketones Negative, Urine Blood Trace-intact H, Urine Nitrate Negative, Urine Bilirubin Negative, Urine Urobilinogen 0.2, Ur Leukocyte Esterase Negative, Urine RBC 2 - 5 H, Urine WBC 0 - 2, Ur Epithelial Cells 3 - 4, Urine Bacteria Few 04/25/18 13:53: WBC 13.1 H, RBC 3.89, Hgb 12.4, Hct 37.9, MCV 97.4, MCH 31.9, MCHC 32.7, RDW 13.4, Plt Count 294, MPV 9.9, Gran % 77.8 H, Lymph % (Auto) 14.2 L, Pepin % (Auto) 7.5 H, Eos % (Auto) 0.2 L, Baso % (Auto) 0.3, Gran # 10.16 H, Lymph # (Auto) 1.9, Pepin # (Auto) 1.0 H, Eos # (Auto) 0.0, Baso # (Auto) 0.04 Vital Signs Temp Pulse Pulse Resp BP Pulse Ox 05/03/18 07:12 98.4 F 78 20 127/68 05/02/18 15:00 81 106/55 L 05/02/18 07:18 97.8 F 82 20 05/01/18 07:00 97.4 F L 95 H 20 127/70 04/30/18 16:00 93 H 117/61 04/30/18 07:00 98.2 F 79 19 129/90 04/29/18 15:42 80 130/63 04/29/18 07:26 98.3 F 87 20 115/54 L 04/28/18 07:20 97.8 F 88 20 134/74 04/27/18 15:00 93 H 119/62 04/27/18 14:43 98.7 F 04/27/18 07:09 97.5 F L 91 H 20 124/60 04/26/18 07:38 99.0 F 96 H 20 126/70 04/25/18 22:42 98.8 F 95 H 18 140/66 04/25/18 19:30 92 H 18 04/25/18 18:55 98 F 74 18 139/59 L 98 04/25/18 16:03 98.6 F 72 18 130/61 99 04/25/18 12:12 97.7 F 91 H 18 134/61 97 DSM 5 Symptoms Update: Patient was seen today at the treatment team meeting, this proposal lead writer is very familiar with this patient from previous admission as well as this hospitalization. Patient has improvement with her presentation, patient remember all of the staff member names, patient remembered this proposal lead writer name, patient was able to indicate her preferences, patient agreed with discharge plan and patient is feeling comfortable to have "someone to help me in the house" patient reported that she feels "much better, patient was calm, cooperative, denied being depressed, denied any thoughts of harming herself or others, patient denied any psychotic symptoms and does not appear to be internally preoccupied or responding to internal stimuli. As per staff patient is visible in the unit, engaged" unit activities, very polite, socializing with others. Patient is compliant with her medications, denied any side effects, none was observed or reported, aims 0, no EPS. As per staff patient has less wandering behavior. 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 Mental Status Examination - Cognitive Function Orientation: Person, Place, Time Memory: Impaired, Other Attention: WNL (Much improved) Concentration: WNL (Much improved) Association: WNL Fund of Knowledge: Poor - Mood Mood: Anxious ("I am feeling fine, I am okay"), Other ("all right") - Affect Affect: Other (anxious) - Speech Speech: Appropriate - Formal Thought Process Formal Thought Process: Hallucinations (Denied), Delusions (Denied), Circumstantial (Thought process is circumstantial and overinclusive, no tangentiality) - Suicidal Ideation Suicidal Ideation: No - Homicidal Ideation Homicidal Ideation: No Goal/Treatment Plan - Goal/Treatment Plan Need for Continued Stay: Remain at risks for inpatient hospitalization, Severe functional impairment Progress Toward Problem(s) and Goals/Treatment Plan: Milieu/structure/supportive therapy Patient is scheduled for discharge tomorrow Prescriptions for all of her medications 2-week supply and 1 refill provided to the patient Family involvement, see SW notes for more detailed information Follow up on labs Will monitor closely Pt was educated about risk/benefits and alternatives of medications, coping strategies (safety plan, suicide prevention), relapse prevention, importance of follow up with psychiatrist and therapist, stay away from drugs/alcohol/smoking Estimated Date of D/C: 05/04/18
--- NOTE | 2018-05-03 15:43 | PCM.BM ---
Treatment Plan Problems - Problems identified on initial assessmt altered thought process Date Initiated: 04/25/18 Time Initiated: :51 Assessment reference: NA Status: Active Altered sleep Date Initiated: 04/25/18 Time Initiated: :51 Assessment reference: NA Status: Active Treatment assets and liabiliti Patient Assests: cooperative, educated, motivated, ADL independent Patient Liabilities: live alone, imparied memory - Milieu Protocol Maintain good personal hygiene: daily Encourage regular showers, daily Remind patient to perform daily oral care, daily Assist patient to perform ADL's Conduct patient checks and document Observation sheet: Q15 minutes Maintain personal safety: daily Educate patient to report safety concerns to staff, daily Monitor environment for contraband/sharps Medication safety: Monitor for expected outcome, potential side effects: daily, Assess barriers to learning: daily, Assess readiness for medication education: daily Milieu Narrative: Milieu/structure/supportive therapy Patient is scheduled for discharge tomorrow Prescriptions for all of her medications 2-week supply and 1 refill provided to the patient Family involvement, see notes for more detailed information Follow up on labs Will monitor closely Pt was educated about risk/benefits and alternatives of medications, coping strategies (safety plan, suicide prevention), relapse prevention, importance of follow up with psychiatrist and therapist, stay away from drugs/alcohol/smoking Family Contact Family contact name: Lisa Townsend(step-daughter) Family contacted how many times per week?: 2 Discharge/Continuing Care - Education Needs Education Needs: Patient Medication, Patient Diagnosis/Disease Process, Patient Coping Skills, Patient Community resources, Patient Activities of Daily Living, Patient Nutrition - Discharge Discharge Criteria: Tolerates medication w/o severe side effects, Normal sleep pattern, Ability to care for self Discharge to:: Home - Treatment Team Participation Patient/Family/SO Statement: Milieu/structure/supportive therapy Patient is scheduled for discharge tomorrow Prescriptions for all of her medications 2-week supply and 1 refill provided to the patient Family involvement, see notes for more detailed information Follow up on labs Will monitor closely Pt was educated about risk/benefits and alternatives of medications, coping strategies (safety plan, suicide prevention), relapse prevention, importance of follow up with psychiatrist and therapist, stay away from drugs/alcohol/smoking Treatment Plan Review - Problem altered thought process Time Initiated: : Altered sleep Time Initiated:
[2018-05-04 07:13] VITALS: BP 116/62; PULSE 80
== END 2018-05-04 13:48 | disposition home or self-care (01) | DRG 884 ==
LOC: ED 12:01 → ERH 15:03 → PSYC 19:23
PROVIDERS: ADMIT Psychiatry & Neurology Addiction Medicine; ATTEND Psychiatry & Neurology Addiction Medicine
DX: F01.51 Vascular dementia, unspecified severity, with behavioral disturbance (principal); F02.81 Dementia in other diseases classified elsewhere, unspecified severity, with behavioral disturbance; F39 Unspecified mood [affective] disorder; F32.89 Other specified depressive episodes; F43.22 Adjustment disorder with anxiety; G30.9 Alzheimer's disease, unspecified; I10 Essential (primary) hypertension; K59.00 Constipation, unspecified; Z87.440 Personal history of urinary (tract) infections